=== PATIENT | male | born 1940 | race Caucasian/White ===

== ENCOUNTER 2017-03-14 13:51 | Emergency (ER) | payer MEDICARE, BC, SELFPAY ==
[2017-03-14 13:52] VITALS: BP 180/90; PULSE 86; RESP 20; TEMP 36.8; O2SAT 95; BMI 28.6
[2017-03-14 15:33] LABS: Bacteria 0 SEEN /hpf (None Seen); Mucous, Urine 0 SEEN /hpf (<or=2+); Red Blood Cells-Urine 0 SEEN /hpf (0-5)
[2017-03-14 15:37] LABS: Color, Urine Yellow (Yellow); Glucose, Dipstick Normal (Normal); Ketone-Dipstick Negative (Negative); Leukocyte Esterase-Dipstick Negative /ul (Negative); Nitrite-Dipstick Negative (Negative); Occult Blood-Urine 250 /ul (Negative); Protein-Dipstick 15 mg/dl (Negative); Urine Bilirubin Dipstick Negative (Negative); Urine Clarity Sl. Cloudy (Clear); Urine Urobilinogen Normal (Normal)
[2017-03-14 15:44] LABS: Amorphous Sediment 1+ URATE; Squamous Epithelial Cells - UA 0-5 SEEN /hpf (0-5); White Blood Cells 10-25 SEEN /hpf (0-5)
--- NOTE | 2017-03-14 16:09 | ED.VISSUMM ---
- ER Visit Summary Date of Service: 03/14/17 Chief Complaint: Urinary retention, hypertension History of Present Illness: The patient is a 76 M who has high blood pressure and some urinary retention. He saw his PCP today. He is having some suprapubic pain with this. He feels like he is not emptying out his bladder. He has a history of BPH in the past. He does not take Flomax currently. He denies dysuria or hematuria. No fevers. Physical Examination: Vital signs reviewed. HEENT exam unremarkable. Heart is regular rate and rhythm without murmurs. Lungs are clear to auscultation. Abdomen is soft with suprapubic tenderness. Extremities reveal no edema. Skin exam normal. Neurologic exam normal. Test Results: Urinalysis reveals 10-25 white blood cells Emergency Department Course and Treatment: A Godoy catheter was placed to be at 1.5 L of urine out. His blood pressure is 177/81. This is improved from 214/110 in the office. His PCP put him on a blood pressure medication and Flomax for home. I will add an antibiotic and he will go home with a Godoy catheter. He can follow up with his PCP or with Dr. Gomes Treatment Plan: [] Disposition: Discharge Impression: UTI, urinary retention, hypertension This note was generated with [employer] dictation software. It may contain incorrect words, spelling, and punctuation that were not noted in review of the chart prior to signing ED Disposition - Plan for ED Patient: Chief Complaint: Complaint Referrals: Paul Tabares III, MD [Primary Care Provider] -
[2017-03-14 16:12] VITALS: BP 187/95; PULSE 70; RESP 16; O2SAT 97
--- NOTE | 2017-03-14 16:12 | ED.DCSUM_ITS ---
- ER Visit Summary Date of Service: 03/14/17 Chief Complaint: Urinary retention, hypertension History of Present Illness: The patient is a 76 M who has high blood pressure and some urinary retention. He saw his PCP today. He is having some suprapubic pain with this. He feels like he is not emptying out his bladder. He has a history of BPH in the past. He does not take Flomax currently. He denies dysuria or hematuria. No fevers. Physical Examination: Vital signs reviewed. HEENT exam unremarkable. Heart is regular rate and rhythm without murmurs. Lungs are clear to auscultation. Abdomen is soft with suprapubic tenderness. Extremities reveal no edema. Skin exam normal. Neurologic exam normal. Test Results: Urinalysis reveals 10-25 white blood cells Emergency Department Course and Treatment: A Godoy catheter was placed to be at 1.5 L of urine out. His blood pressure is 177/81. This is improved from 214/ 110 in the office. His PCP put him on a blood pressure medication and Flomax for home. I will add an antibiotic and he will go home with a Godoy catheter. He can follow up with his PCP or with Dr. Gomes Treatment Plan: [] Disposition: Discharge Impression: UTI, urinary retention, hypertension This note was generated with [employer] dictation software. It may contain incorrect words, spelling, and punctuation that were not noted in review of the chart prior to signing ED Disposition - Plan for ED Patient: Chief Complaint: Complaint Referrals: Paul Tabares III, MD [Primary Care Provider] -
--- NOTE | 2017-03-14 16:12 | ED.DEP ---
ED Disposition - Plan for ED Patient: Disposition: Home or Assisted Living Chief Complaint: Complaint Instructions: ED UTI Cystitis Male Prescriptions: Cephalexin [Keflex] 500 mg PO BID #10 cap Referrals: Paul Tabares III, MD [Primary Care Provider] -
[2017-03-14 16:15] VITALS: BP 187/95; PULSE 70; RESP 16; O2SAT 97
== END 2017-03-14 16:29 | disposition home or self-care (01) ==
PROVIDERS: Emergency Provider Emergency Medicine; Family Provider Family Medicine; PCP Family Medicine
DX: N39.0 Urinary tract infection, site not specified (principal); R33.9 Retention of urine, unspecified; I10 Essential (primary) hypertension
CPT/HCPCS: 51702; 81001; 99283

== ENCOUNTER 2017-03-14 21:19 | Inpatient (IN) | payer MEDICARE, BC, SELFPAY ==
[2017-03-14 13:52] VITALS: BMI 28.6
[2017-03-14 16:15] VITALS: BP 187/95
[2017-03-14 21:22] VITALS: BP 177/110; PULSE 84; RESP 18; TEMP 37; O2SAT 97; BMI 28.1
[2017-03-14 22:52] LABS: Hematocrit 36.9 % (40-54); Hemoglobin 12.5 g/dl (13.0-16.5); Mean Corp Hgb Conc 33.9 g/gl (32-36); Mean Corpuscular Hgb 33.7 pg (27.0-32.0); Mean Corpuscular Volume 99.5 fL (80-94); Mean Platelet Vol. 10.7 fl (6.2-12.0); Platelet Count 183 K/mm3 (150-450); RBC Distribution Width CV 12.5 % (11.6-14.6); RBC Distribution Width SD 44.4 fl (35.1-43.9); Red Blood Count 3.71 M/mm3 (4.6-6.2); White Blood Count 7.6 K/mm3 (4.4-11.0)
[2017-03-14 22:57] LABS: Scan Indicated on CBC? Y/N NO
[2017-03-15] VITALS (8 sets, daily range): BP systolic 131–197; BP diastolic 74–104; PULSE 73–84; RESP 14–18; TEMP 36.7–37.1; O2SAT 97–98; BMI 26.9
--- NOTE | 2017-03-15 00:55 | ED.VISSUMM ---
- ER Visit Summary Date of Service: 03/15/17 Chief Complaint: Hematuria History of Present Illness: The patient is a 76 M has had a history of prostatic enlargement, recently diagnosed with a UTI and having trouble emptying his bladder so he was seen earlier today here in the ER after being sent by his doctor for catheterization, he was diagnosed with urinary retention and sent home with catheter to follow-up with urology. About half an hour after being catheterized leaving, he developed hematuria which developed in the clots, he then had some leaking around the catheter and intermittent discomfort in his suprapubic area. No back pain, nausea, vomiting, fevers. He started the antibiotic. Has never had hematuria before. Physical Examination: Well-appearing in no distress, vitals are unremarkable. He has minimal suprapubic discomfort with palpation, the rest of his abdomen is benign. No CVA tenderness. There is gross blood with clots present in the Godoy catheter, which is draining. Test Results: CBC is unremarkable. Emergency Department Course and Treatment: The bladder was irrigated and cleared. However, bleeding later recurred with clots. I recommend admission. Discussed with Dr. Gomes. Will admit to floor with continuous bladder irrigation, will place a new triple-lumen larger Lao Godoy catheter here in the ER. Treatment Plan: Admit MedSur for continuous bladder irrigation and urology evaluation in the morning Disposition: Admit Impression: Hematuria Urinary tract infection Urinary retention This note was generated with [employer] dictation software. It may contain incorrect words, spelling, and punctuation that were not noted in review of the chart prior to signing ED Disposition - Plan for ED Patient: Disposition: Acute Care Hospital [facility] Chief Complaint: Complaint Referrals: Paul Tabares III, MD [Primary Care Provider] -
--- NOTE | 2017-03-15 02:00 | ED.RN ---
[address] caldera placed with out any issues, sterile technique used. patient had clots and bright red blood return. cbi hung at at this time. patient tolerated well.
[2017-03-15] MEDS: Lidocaine Jelly 2% 20 ML Syringe (URO-JET) 10 APPLIC TOPICAL (02:05)
[2017-03-15 02:25] LABS: Anion Gap 12 (5-15); BUN 25 mg/dL (7-18); BUN/Creat Ratio 16.7 RATIO (10-20); Calcium,Total 8.6 mg/dL (8.5-10.1); Chloride 106 mmol/L (98-107); EST Glomerular Filtration Rate 49 mL/min (>60); Est Glom Filt Rate - Afr Amer 59 mL/min (>60); Glucose 100 mg/dL (74-106); Potassium 3.7 mmol/L (3.5-5.1); Sodium Level 141 mmol/L (136-145)
[2017-03-15] MEDS: 0.9% Normal Saline 1,000 ML 75 ML IV ×2 (03:13→18:23)
[2017-03-15] MEDS: Cefazolin 1 GM/50 ML BAG IV ×3 (03:24→21:20)
--- NOTE | 2017-03-15 07:54 | PCM.HP.STD ---
Problem List (1) Urinary retention due to benign prostatic hyperplasia Status: Acute Comment: had been having problems urinating and night time wetting. presented to ER in retention. History of Present Illness Date of Admission: 03/15/17 Chief Complaint: bph urinary retention. The patient is a 76 year old male with onset of urinary retention had been having leakage at night and incontinence, found to have retention and bleeding will do ct scan add on for TURP tomorrow. Past Medical History Allergies No Known Allergies Allergy (Verified 03/14/17 21:20) Home Medications: Ambulatory Orders Medication Instructions Recorded Cephalexin [Keflex] 500 mg PO BID #10 cap 03/14/17 Lisinopril [Prinivil] 10 mg PO DAILY 03/14/17 Tamsulosin HCl [Flomax] 0.4 mg PO DAILY 03/14/17 Surgical History: no surgical history Psychiatric History: No pertinent psych hx Lives: Alone Smoking Status: Never smoker Tobacco Use: Non-smoker Alcohol: None Drugs: None Review of Systems Constitutional: Denies: Chills, Fever, Weight Change HEENT: Denies: Head Aches, Sinus Congestion, Sinus Drainage Cardiovascular: Denies: Chest Pain, Palpitations Respiratory: Denies: Cough, Shortness of breath at rest, Sputum production Gastrointestinal: Denies: Abdominal Pain, Nausea, Vomiting Genitourinary: Denies: Dysuria Musculoskeletal: Denies: Joint Pain, Joint Tenderness Skin: Denies: Rash, Wounds Neurological: Denies: Numbness, Tingling, Focal weakness Psychiatric: Denies: Anxiety, Depression, Homicidal Ideations, Suicidal Ideations Hematologic/ Lymphatic: Denies: Easy Bruising, Easy Bleeding VTE Information - Inpt Only VTE Present on Admission: No VTE Mechan Device Prophylaxis: SCD's Patient Problems: Active and Suspected Problems Urinary retention due to benign prostatic hyperplasia (Acute) had been having problems urinating and night time wetting. presented to ER in retention. - Physical Exam General: Alert, Oriented x3, Cooperative HEENT: Atraumatic, PERRLA, EOMI, Normocephalic Neck: Supple, No JVD, Negative Carotid Bruits Lungs: Clear to auscultation, Normal air movement Cardiovascular: Regular rate, No murmurs Abdomen: Bowel Sounds Present, Soft, Non Tender Extremities: No edema, Capillary Refill Less than 3 Seconds Skin: No rashes, No breakdown Musculoskeletal: No Tenderness to Palpation of Joints or Extremities Neurological: Cranial nerves II-XII grossly intact Psych/Mental Status: Normal Affect, Appropriate Comment: prostate, enlarged 65gm,smooth Vital Signs Temp Pulse Resp BP Pulse Ox 98.5 F 81 16 145/80 H 98 03/15/17 07:45 03/15/17 07:45 03/15/17 07:45 03/15/17 07:45 03/15/17 07:45 Oxygen Delivery Method Room Air Weight: 80.377 kg Body Mass Index (BMI) 26.9 Intake and Output for Last 24 Hours 03/13/17 03/14/17 03/15/17 23:59 23:59 23:59 Output Total 900 / 900 Balance -900 / -900 Assessment/Plan Active and Suspected Problems Urinary retention due to benign prostatic hyperplasia (Acute) had been having problems urinating and night time wetting. presented to ER in retention. 76 yo male with urinary retention admitted for bleeding will do ct scan, plan for a TURP in the morning. npo at midnight.
--- NOTE | 2017-03-15 07:57 | CT_ITS ---
STUDY: CT ABDOMEN AND PELVIS WITHOUT CONTRAST REASON FOR EXAM: Male, 76 years old. Urinary retention. History of BPH. RADIATION DOSAGE (If Supplied By Facility): CTDIvol = ( 7.81 ) mGy, DLP = ( 374.40 ) mGycm TECHNIQUE: Transaxial images were obtained from the dome of the diaphragm to the symphysis pubis without oral contrast, and without intravenous contrast. Sagittal and coronal images were reconstructed. Individualized dose optimization techniques were used for this CT. COMPARISON: None. FINDINGS: Minimal degree of increased markings at the lung bases suggestive of linear scarring and/or atelectasis. Small left pleural effusion. Coronary artery calcifications. Normal liver. I suspect small gallstones along the dependent portion of the gallbladder lumen. Normal spleen. Normal pancreas. Normal bilateral adrenal glands. Moderate to severe degree of right-sided hydronephrosis and there is moderate hydroureter down to the insertion into the bladder. Moderate left hydronephrosis and left hydroureter. There is a small hiatal hernia. Normal small intestine. There are multiple colonic diverticula consistent with diverticulosis. The appendix is visualized and appears normal. There is diffuse atherosclerotic calcification of the abdominal aorta, without a demonstrated aneurysm. Normal inferior vena cava. Normal retroperitoneum. There is diffuse circumferential wall thickening of the urinary bladder. A Godoy catheter is seen within the bladder. The bladder is empty at the time of the examination. There is enlargement of the prostate gland. It measures 5.1 cm x 5.3 cm. This causes indentation at the bladder base. There is a small umbilical hernia containing fat. Disc space narrowing with subchondral sclerosis at the L4-L5 level. CT/Abdomen/Pelvis without Cont IMPRESSION: Bilateral hydronephrosis and hydroureter worse on the right side. Diffusely thickened wall of the urinary bladder. Prostatic hypertrophy. Small left pleural effusion with linear atelectasis and/or scarring at the lung bases. Electronically Signed: Vaibhav Llamas MD at 9:02 EST Tel [phone], Service support ,
[2017-03-15] MEDS: Tamsulosin HCl 0.4 MG Capsule PO (11:27)
[2017-03-15] MEDS: 0.9% NaCl Peripheral Flush Adult/Peds IV (11:27)
[2017-03-15] MEDS: Lisinopril 10 MG Tablet PO (11:27)
[2017-03-15] MEDS: Acetaminophen 325 MG Tablet PO (21:19)
[2017-03-16] VITALS (18 sets, daily range): BP systolic 113–170; BP diastolic 60–140; PULSE 67–81; RESP 16–18; TEMP 36–37.4; O2SAT 92–100; BMI 26.9
--- NOTE | 2017-03-16 04:00 | EKG12_ITS ---
Test Reason : PREOP Blood Pressure : / mmHG Vent. Rate : 075 BPM Atrial Rate : 075 BPM P-R Int : 152 ms QRS Dur : 128 ms QT Int : 444 ms P-R-T Axes : 051 -36 -07 degrees QTc Int : 495 ms Normal sinus rhythm Left axis deviation Right bundle branch block Abnormal ECG Confirmed by CEDRIC PALENCIA, HUNTER ([id number]), electronic news gathering editor JAXON CHOUDHURY ([id number]) on 03/19/2017 2:20:38 PM Referred By: GABRIELA Confirmed By:HUNTER STEELE MD
--- NOTE | 2017-03-16 05:33 | NURSING ---
0600 CEFAZOLIN SENT TO OR W/PT. LATESHA FROM SURGERY GIVEN REPORT. PT OFF FLOOR AT 0520.
[2017-03-16] MEDS: Cefazolin 1 GM/50 ML BAG IV ×3 (07:24→21:51)
--- NOTE | 2017-03-16 07:30 | PROS_PTH ---
PATIENT: KYAW CALHOUN LOC: MS3 U#:[id number] AGE/SX: 76/M ROOM: [facility] [place]03/16/[address]: Dr. Diomedes Gomes MD : [id number] BED: 1 DIS: 03/18/2017 SPEC #: [id number] RECD: 03/16/17 10:11 STATUS: HÉCTOR ACOSTA #: [id number] MIGUELINA: 03/16/17 07:[address]: Diomedes Gomes DEPT: SURGICAL PATHOLOGY RECD BY: Steven Persaud ENTERED: 03/16/17 12:09 SP TYPE: TURP OTHR DR: Dr. Paul Tabares III, MD Tissues: Prostate, NOS Procedures: Surgery Specimen Level IV HEADER OPERATION: Cysto, TUR, prostate, Olympus PRE-OP DIAGNOSIS: Urinary retention; benign prostatic hypertrophy TISSUE SUBMITTED: Prostate tissue MICROSCOPIC DIAGNOSIS Prostate, transurethral resection: Benign nodular hyperplasia, glandular and stromal types. Chronic inflammation with focal acute inflammation. Strips of benign urothelium with mild chronic inflammation. AM:gallito 03/19/17 MICROSCOPIC DESCRIPTION Slides are reviewed. GROSS DESCRIPTION Received is one container labeled with the patient's name and designated prostate tissue. The specimen consists of multiple irregular fragments of pink-garcia, rubbery, soft tissue that in aggregate weigh 34.1 gm and measure in aggregate 8 x 8 x 1.2 cm. Noc Engineer portions are submitted in 12 cassettes. / AM:gallito 03/16/17 TC:2 CPT: 28088
--- NOTE | 2017-03-16 08:58 | PCM.OPRPT ---
Problem List (1) Urinary retention due to benign prostatic hyperplasia Status: Acute Comment: Urinary retention from BPH and bilateral hydronephrosis Report of Operation Date of Procedure: 03/16/17 Pre-Operative Diagnosis: BPH, urinary retention and bilateral hydronephrosis Post-Operative Diagnosis: Same Surgery/Procedure Performed:: Transurethral resection of the prostate Description of Surgical Findings:: 76-year-old male taken back to the operating room at the smooth induction of general anesthesia he is placed in dorsal lithotomy position the current 24 Polish catheter was removed from the bladder this is placed in the emergency room by the ER staff. I then prepped and draped the patient usual sterile fashion went into the bladder with a 26 Polish continuous flow resectoscope along the length of the ureter there is a small tear in the bulbar urethra posteriorly from the placement of Godoy catheter this is a little bit of bleeding otherwise just a small tear should help heal on its own I then went up the prostate had a very large obstructive prostate very large lateral lobes growing into the prostate no significant median lobe I then resected the median lobe and resected at the 6:00 back to the verumontanum I then resected the right lobe of the prostate all the way back to the verumontanum I then resected the left lobe of the prostate out all the way back to the verumontanum, I then very carefully resected the apical tissue at the verumontanum making sure I did not injure the sphincter we elect out all the chips out of the bladder bladder was heavily trabeculated left and right ureteral orifice were uninvolved and uninjured and surgery and were identified. Once all the prostate chips were removed there was a handed off as a specimen I did then use the button to smooth out the resection and obtained good hemostasis. I pulled back beyond the sphincter and the sphincter coapted together was nice intact look like the sphincter was working properly looked inside from the bladder into the bladder had a wide open channel. We did a Valsalva test at the end had a nice wide open stream. Patient anesthetic was reversed place a 22 Polish Godoy catheter into the bladder and put on continuous bladder irrigation with a 30 cc balloon of water. Type of Anesthesia:: General Drains: 22fr 3 way - Admit VTE Documentation VTE Present on Admission: No VTE Mechan Device Prophylaxis: SCD's VTE Pharm Prophylaxis ordered?: No Reason prophylaxis not ordered:: Treatment Not Indicated
[2017-03-16] MEDS: 0.9% Normal Saline 1,000 ML 75 ML IV ×2 (11:51→21:51)
[2017-03-16] MEDS: Pantoprazole Sodium 40 MG Tablet PO (12:41)
[2017-03-16] MEDS: Lisinopril 10 MG Tablet PO (12:41)
[2017-03-16] MEDS: Docusate Sodium 100 MG Capsule PO ×2 (12:41→21:50)
[2017-03-16] MEDS: Tamsulosin HCl 0.4 MG Capsule PO (12:41)
[2017-03-16] MEDS: Acetaminophen 325 MG Tablet PO (21:50)
[2017-03-17 03:45] VITALS: BP 134/74; PULSE 83; RESP 15; TEMP 37.4; O2SAT 96
[2017-03-17] MEDS: Cefazolin 1 GM/50 ML BAG IV ×3 (05:11→21:01)
[2017-03-17 06:36] LABS: Hematocrit 26.1 % (40-54); Hemoglobin 8.7 g/dl (13.0-16.5); Mean Corp Hgb Conc 33.3 g/gl (32-36); Mean Corpuscular Hgb 33.7 pg (27.0-32.0); Mean Corpuscular Volume 101.2 fL (80-94); Mean Platelet Vol. 10.8 fl (6.2-12.0); Platelet Count 125 K/mm3 (150-450); RBC Distribution Width CV 12.3 % (11.6-14.6); RBC Distribution Width SD 43.4 fl (35.1-43.9); Red Blood Count 2.58 M/mm3 (4.6-6.2); Scan Indicated on CBC? Y/N NO; White Blood Count 8.6 K/mm3 (4.4-11.0)
[2017-03-17 07:01] LABS: Anion Gap 8 (5-15); BUN 18 mg/dL (7-18); BUN/Creat Ratio 15.9 RATIO (10-20); Calcium,Total 7.4 mg/dL (8.5-10.1); Chloride 109 mmol/L (98-107); Creatinine, Serum 1.13 mg/dL (0.70-1.30); EST Glomerular Filtration Rate 67 mL/min (>60); Est Glom Filt Rate - Afr Amer 82 mL/min (>60); Estimated Creatinine Clearance 55.49 ml/min; Glucose 100 mg/dL (74-106); Potassium 3.6 mmol/L (3.5-5.1); Sodium Level 141 mmol/L (136-145)
[2017-03-17 07:53] VITALS: BP 145/66; PULSE 87; RESP 18; TEMP 36.9; O2SAT 97
[2017-03-17] MEDS: Docusate Sodium 100 MG Capsule PO ×2 (08:04→21:01)
[2017-03-17] MEDS: Tamsulosin HCl 0.4 MG Capsule PO (08:04)
[2017-03-17] MEDS: Pantoprazole Sodium 40 MG Tablet PO (08:04)
[2017-03-17] MEDS: Lisinopril 10 MG Tablet PO (08:04)
--- NOTE | 2017-03-17 08:07 | PCM.PROGNOTE ---
Patient Problems: Active and Suspected Problems Urinary retention due to benign prostatic hyperplasia (Acute) Urinary retention from BPH and bilateral hydronephrosis Subjective: s/p turp, urine light pink off irrigation this morning. - Physical Exam General: Alert, Oriented x3, Cooperative HEENT: Atraumatic, PERRLA, EOMI, Normocephalic Neck: Supple, No JVD, Negative Carotid Bruits Lungs: Clear to auscultation, Normal air movement Cardiovascular: Regular rate, No murmurs Abdomen: Bowel Sounds Present, Soft, Non Tender Extremities: No edema, Capillary Refill Less than 3 Seconds Skin: No rashes, No breakdown Musculoskeletal: No Tenderness to Palpation of Joints or Extremities Neurological: Cranial nerves II-XII grossly intact Psych/Mental Status: Normal Affect, Appropriate Vital Signs Temp Pulse Resp BP Pulse Ox 98.5 F 87 18 145/66 H 97 03/17/17 07:53 03/17/17 07:53 03/17/17 07:53 03/17/17 07:53 03/17/17 07:53 Oxygen Delivery Method Room Air Intake and Output for Last 24 Hours 03/15/17 03/16/17 03/17/17 23:59 23:59 23:59 Intake Total 428 / 5003 1445 / 1445 Output Total 1925 / 7325 4700 / 4700 Balance -1497 / -2322 -3255 / -3255 Laboratory Tests Past 24 Hrs 03/17/17 03/17/17 06:09 06:09 WBC 8.6 RBC 2.58 L Hgb 8.7 L Hct 26.1 L MCV 101.2 H MCH 33.7 H MCHC 33.3 RDW 12.3 RDW Differential 43.4 Plt Count 125 L MPV 10.8 Sodium 141 Potassium 3.6 Chloride 109 H Carbon Dioxide 24.0 Anion Gap 8 BUN 18 Creatinine 1.13 Estim Creat Clear Calc 55.49 Est GFR (MDRD) Af Amer 82 Est GFR (MDRD) Non-Af 67 BUN/Creatinine Ratio 15.9 Glucose 100 Calcium 7.4 L Assessment/Plan Active and Suspected Problems Urinary retention due to benign prostatic hyperplasia (Acute) Urinary retention from BPH and bilateral hydronephrosis continue IVF out of bed , ambulate stop cbi and watch too early to d/c caldera v large prostate still some blood, HCT down some but no transfusion needed BP a little high on lisinopril but ok for now.
[2017-03-17] MEDS: 0.9% Normal Saline 1,000 ML 75 ML IV (14:05)
[2017-03-17 14:07] VITALS: BP 105/86; PULSE 88; RESP 18; TEMP 37; O2SAT 98
[2017-03-17 20:40] VITALS: BP 159/89; PULSE 88; RESP 18; TEMP 37.2; O2SAT 98
[2017-03-17] MEDS: oxyCODONE 5 MG Tablet PO (20:48)
[2017-03-17 20:50] VITALS: PULSE 88; RESP 18; O2SAT 98
[2017-03-18 03:00] VITALS: BP 162/81; PULSE 88; RESP 18; TEMP 37.1; O2SAT 98
[2017-03-18 03:16] VITALS: BP 162/81; PULSE 88
[2017-03-18] MEDS: Cefazolin 1 GM/50 ML BAG IV (05:22)
[2017-03-18] MEDS: 0.9% Normal Saline 1,000 ML 75 ML IV (05:22)
[2017-03-18 07:24] VITALS: PULSE 90; RESP 20; TEMP 36.6
--- NOTE | 2017-03-18 07:49 | PCM.PROGNOTE ---
Patient Problems: Active and Suspected Problems Urinary retention due to benign prostatic hyperplasia (Acute) Urinary retention from BPH and bilateral hydronephrosis Subjective: s/p turp caldera removed today bp high will increase lisinopril to 20mg daily urine wine color with occ clots caldera removed - Physical Exam General: Alert, Oriented x3, Cooperative HEENT: Atraumatic, PERRLA, EOMI, Normocephalic Neck: Supple, No JVD, Negative Carotid Bruits Lungs: Clear to auscultation, Normal air movement Cardiovascular: Regular rate, No murmurs Abdomen: Bowel Sounds Present, Soft, Non Tender Extremities: No edema, Capillary Refill Less than 3 Seconds Skin: No rashes, No breakdown Musculoskeletal: No Tenderness to Palpation of Joints or Extremities Neurological: Cranial nerves II-XII grossly intact Psych/Mental Status: Normal Affect, Appropriate Vital Signs Temp Pulse Resp BP Pulse Ox 97.8 F 90 20 H 162/81 H 98 03/18/17 07:24 03/18/17 07:24 03/18/17 07:24 03/18/17 03:16 03/18/17 03:00 Oxygen Delivery Method Room Air Intake and Output for Last 24 Hours 03/16/17 03/17/17 03/18/17 23:59 23:59 23:59 Intake Total 428 / 5003 2837 / 2837 2099 Output Total 1925 / 7325 3550 / 3550 Balance -1497 / -2322 -713 / -713 2099 Assessment/Plan Active and Suspected Problems Urinary retention due to benign prostatic hyperplasia (Acute) Urinary retention from BPH and bilateral hydronephrosis caldera removed heplock oral cipro ambulate will check later today, if ok then home.
[2017-03-18] MEDS: Lisinopril 20 MG Tablet PO (07:56)
[2017-03-18] MEDS: Tamsulosin HCl 0.4 MG Capsule PO (07:58)
[2017-03-18] MEDS: Docusate Sodium 100 MG Capsule PO (07:58)
[2017-03-18] MEDS: Pantoprazole Sodium 40 MG Tablet PO (07:59)
[2017-03-18] MEDS: Ciprofloxacin 500 MG Tablet PO (09:41)
--- NOTE | 2017-03-18 14:32 | PCM.DC.URO ---
Discharge Diet: Light diet - advance as tolerated Discharge Activity: May Not Shower May shower in (days): 1 Call your doctor if your incision/area has: Sudden Increased Bleeding Call your doctor if you observe: Fever of 101 or Higher, Uncontrolled pain Suture Line Care: Avoid Pulling/Pushing, Avoid Pinching/Bending Instructions: Transurethral Resection of the Prostate (TURP): Home Recovery Allergies/Adverse Reactions: Allergies No Known Allergies Allergy (Verified 03/14/17 21:20) Medications to take at Discharge Cephalexin [Keflex] 500 mg PO BID #10 cap 03/14/17 Lisinopril [Prinivil] 10 mg PO DAILY 03/14/17 Tamsulosin HCl [Flomax] 0.4 mg PO DAILY 03/14/17 Ciprofloxacin [Cipro] 500 mg PO BID #14 tab 03/18/17 The following prescriptions were given: Ciprofloxacin [Cipro] 500 mg PO BID #14 tab Primary Care Physician: Paul Tabares III, MD [Primary Care Provider] - Please Follow Up With: Diomedes Gomes MD When: please call to make an appointment.
--- NOTE | 2017-03-18 14:33 | PCM.DC.SUM ---
Discharge Date and Diagnosis - Problem List Patient Problems: Active and Suspected Problems Urinary retention due to benign prostatic hyperplasia (Acute) Urinary retention from BPH and bilateral hydronephrosis Date of Admission: 03/15/17 Date of Discharge: 03/18/17 - Primary Discharge Diagnosis Active and Suspected Problems Urinary retention due to benign prostatic hyperplasia (Acute) Urinary retention from BPH and bilateral hydronephrosis Hospital Course and Treatment none Operations: TURP Procedures: None Summary of Care Provided: The patient is a 76 year old male admitted for urinary retention and b/l hydronephrosis s/p turp, bloody afterwards and hct down to 8.7 but then stabilized home after caldera removed, void ok, no clots and ok control. Blood pressure labile while in hospital recently stared on lisinopril, recommend stay on same dose and follow up with pcp for high blood pressure, follow up with urology for bph and post op check. Discharge Diet: Light diet - advance as tolerated Discharge Activity: May Not Shower May shower in (days): 1 Call your doctor if your incision/area has: Sudden Increased Bleeding Call your doctor if you observe: Fever of 101 or Higher, Uncontrolled pain Suture Line Care: Avoid Pulling/Pushing, Avoid Pinching/Bending Home Medications: Medications to take at Discharge Cephalexin [Keflex] 500 mg PO BID #10 cap 03/14/17 Lisinopril [Prinivil] 10 mg PO DAILY 03/14/17 Tamsulosin HCl [Flomax] 0.4 mg PO DAILY 03/14/17 Ciprofloxacin [Cipro] 500 mg PO BID #14 tab 03/18/17 Following Prescrptions Were Given to Patient: Ciprofloxacin [Cipro] 500 mg PO BID #14 tab Primary Care Physician: Paul Tabares III, MD [Primary Care Provider] - Please Follow Up With: Diomedes Gomes MD When: please call to make an appointment. Patient Instructions: Transurethral Resection of the Prostate (TURP): Home Recovery Meaningful Use Info Meaningful Use Diagnoses (Choose all that apply): None applicable
[2017-03-18 14:36] VITALS: BP 135/46; PULSE 96; RESP 18; TEMP 37; O2SAT 95
== END 2017-03-18 14:51 | disposition home or self-care (01) | DRG 713 ==
LOC: ED 03-15 00:55 → MS2 03-15 02:07 → MS3 03-17 14:44
PROVIDERS: Admitting Provider Urology; Emergency Provider Emergency Medicine; Family Provider Family Medicine; PCP Family Medicine; Visit Provider Urology
PROC: 0VB08ZZ Excision of Prostate, Via Natural or Artificial Opening Endoscopic (ICD-10-PCS; principal; 2017-03-16 07:20)
DX: N40.1 Benign prostatic hyperplasia with lower urinary tract symptoms (principal); N13.30 Unspecified hydronephrosis; N99.71 Accidental puncture and laceration of a genitourinary system organ or structure during a genitourinary system procedure; R71.0 Precipitous drop in hematocrit; N39.0 Urinary tract infection, site not specified; R31.9 Hematuria, unspecified; R33.8 Other retention of urine; Z79.899 Other long term (current) drug therapy; Z79.2 Long term (current) use of antibiotics; I10 Essential (primary) hypertension; K44.9 Diaphragmatic hernia without obstruction or gangrene; Y84.6 Urinary catheterization as the cause of abnormal reaction of the patient, or of later complication, without mention of misadventure at the time of the procedure; Y73.1 Therapeutic (nonsurgical) and rehabilitative gastroenterology and urology devices associated with adverse incidents; Y92.230 Patient room in hospital as the place of occurrence of the external cause
CPT/HCPCS: 36415; 51702; 74176; 80048; 81001; 85027; 88305; 93005; 99283; 99285; J7030; J7120; A4216; J2405

== ENCOUNTER → 2017-07-03 14:01 | Outpatient (CLI) | payer MEDICARE, BC, SELFPAY ==
[2017-07-03 15:34] LABS: Anion Gap 5 (5-15); BUN 25 mg/dL (7-18); BUN/Creat Ratio 26.7 RATIO (10-20); Calcium,Total 8.9 mg/dL (8.5-10.1); Chloride 107 mmol/L (98-107); Creatinine, Serum 0.94 mg/dL (0.70-1.30); EST Glomerular Filtration Rate 84 mL/min (>60); Est Glom Filt Rate - Afr Amer 101 mL/min (>60); Glucose 112 mg/dL (74-106); Sodium Level 141 mmol/L (136-145)
== END ==
PROVIDERS: Family Provider Family Medicine; PCP Family Medicine; Visit Provider Urology
DX: Z12.5 Encounter for screening for malignant neoplasm of prostate (principal)
CPT/HCPCS: 36415; 80048; 84153; G0103

== ENCOUNTER → 2018-02-21 13:31 | Outpatient (CLI) | payer MEDICARE, BC, SELFPAY ==
[2017-03-16 05:38] VITALS: BMI 26.9
[2018-02-21 14:58] LABS: Anion Gap 7 (5-15); BUN 29 mg/dL (7-18); BUN/Creat Ratio 29.2 RATIO (10-20); Calcium,Total 8.9 mg/dL (8.5-10.1); Chloride 107 mmol/L (98-107); Creatinine, Serum 0.99 mg/dL (0.70-1.30); EST Glomerular Filtration Rate 78 mL/min (>60); Est Glom Filt Rate - Afr Amer 94 mL/min (>60); Glucose 104 mg/dL (74-106); Potassium 4.1 mmol/L (3.5-5.1); Sodium Level 142 mmol/L (136-145)
--- OUTSIDE RECORDS SUMMARY | 2018-04-28 08:05 | XMS RPT_ITS ---
:1940 Author Organization OH[facility] Care Team Providers Name Role Phone PAUL TABARES III Attending Unavailable CEBUL III, PAUL A Referring Unavailable CEBUL IIIPAUL A Referring Unavailable Cebul III, Paul Attending Unavailable Cebul III, Paul Referring Unavailable Cebul III, Paul Primary Care Unavailable Cebul III, Paul Primary Care Unavailable Kunal Harper Attending Unavailable Cebul III, Paul Primary Care Unavailable Diomedes Gomes Admitting Unavailable GabrielaDiomedes Attending Unavailable [place] Attending Unavailable Diomedes Gomes Referring Unavailable Diomedes Gomes Attending Unavailable Diomedes Gomes Referring Unavailable Cebul III, Paul Primary Care Unavailable PROBLEMS PROBLEMS DATE TYPE CONDITION / CODE ATTENDING STATUS SOURCE 03/21/2017 Active Unknown / UNK(Unknown) NA Active [facility] Main [place] Repository 04/20/2017 Unknown R94.31 - Abnormal [place], Active [facility] electrocardiogram [facility] [ECG] [EKG] / Hospital R94.31(ICD-10) Repository 04/02/2017 Unknown R33.9 - Retention of Lowe, Kunal Active [facility] urine, unspecified / Community R33.9(ICD-10) Hospital Repository 03/14/2017 Active Benign prostatic NA Active [facility] hyperplasia with lower Clinic Main urinary tract symptoms [place] / N40.1(ICD-10) Repository 03/14/2017 Active 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 / Clinic Main N13.8(ICD-10) [place] Repository 03/14/2017 Active Essential (primary) NA Active [facility] hypertension / Clinic Main I10(ICD-10) [place] Repository 03/14/2017 Active Hyperlipidemia, NA Active [facility] unspecified / Clinic Main E78.5(ICD-10) [place] Repository 03/14/2017 Active Elevated prostate NA Active [facility] specific antigen (PSA) Clinic Main / R97.20(ICD-10) [place] Repository PROCEDURES PROCEDURES No Procedure Records FoundRESULTS RESULTS BASIC METABOLIC Collected: 02/21/2018 Status: F Source: [place] PROFILE (BMP) 1:36 PM [facility] REPOSITORY TYPE CODE TESTS RESULT OUT OF RANGE REFERENCE UNITS LAB L501.0100 74-106 mg/dL Normal GLU 104 Result Comment: Fasting Glucose result from 100 to 125 mg/dL suggests IMPAIRED HOMEOSTASIS per A.D.A. criteria. Please note revised GLUCOSE reference range effective 2017. LAB L501.1000 7-18 mg/dL High BUN 29 LAB L501.1100 0.70-1.30 mg/dL Normal CREAT,SERUM 0.99 Result Comment: The validity of the calculated GFR AND GFRAA in patients over 70 years has not been determined. Clinical correlation is essential. LAB L501.1110 >60 mL/min Normal EST GFR 78 Result Comment: Non- GFR Calc LAB L501.1115 >60 mL/min Normal EST GFR - AA 94 Result Comment: GFR Calc LAB L501.1300 10-20 RATIO High BUN/CRE 29.2 LAB L501.2200 8.5-10.1 mg/dL CA Normal 8.9 LAB L501.5300 136-145 mmol/L NA Normal 142 LAB L501.5600 3.5-5.1 mmol/L K Normal 4.1 LAB L501.5900 98-107 mmol/L CL Normal 107 LAB L501.6100 21.0-32.0 mmol/L Normal CO2 28.0 LAB L501.6200 5-15 Normal GAP 7 Performed By: #### L500.2500 #### [facility] [address] [place], [address] BASIC METABOLIC Collected: 07/03/2017 Status: F Source: [place] PROFILE (BMP) 2:07 PM [facility] REPOSITORY TYPE CODE TESTS RESULT OUT OF RANGE REFERENCE UNITS LAB L501.0100 74-106 mg/dL High GLU 112 Result Comment: Fasting Glucose result from 100 to 125 mg/dL suggests IMPAIRED HOMEOSTASIS per A.D.A. criteria. Please note revised GLUCOSE reference range effective 2017. LAB L501.1000 7-18 mg/dL High BUN 25 LAB L501.1100 0.70-1.30 mg/dL Normal CREAT,SERUM 0.94 Result Comment: The validity of the calculated GFR AND GFRAA in patients over 70 years has not been determined. Clinical correlation is essential. LAB L501.1110 >60 mL/min Normal EST GFR 84 Result Comment: Non- GFR Calc LAB L501.1115 >60 mL/min Normal EST GFR - AA 101 Result Comment: GFR Calc LAB L501.1300 10-20 RATIO High BUN/CRE 26.7 LAB L501.2200 8.5-10.1 mg/dL CA Normal 8.9 LAB L501.5300 136-145 mmol/L NA Normal 141 LAB L501.5600 3.5-5.1 mmol/L K Normal 4.0 LAB L501.5900 98-107 mmol/L CL Normal 107 LAB L501.6100 21.0-32.0 mmol/L Normal CO2 29.0 LAB L501.6200 5-15 Normal GAP 5 Performed By: #### L500.2500, L501.9910 #### [facility] [address] [place], [address] PSA,TOTAL - ANNUAL Collected: 07/03/2017 Status: F Source: [place] SCREEN 2:07 PM [facility] REPOSITORY TYPE CODE TESTS RESULT OUT OF RANGE REFERENCE UNITS LAB L501.9910 0.00-4.00 ng/mL Normal PSA,TOT 3.40 SCREEN Result Comment: This test was performed using the TPSA assay method for the Spime chemistry system. Values obtained with different assay methods cannot be used interchangably. When changing PSA assays in the course of monitoring a patient, additional sequential testing should be carried out to confirm baseline values. Performed By: #### L500.2500, L501.9910 #### [facility] [address] [place], [address] PROGRESS Observed: 03/21/2017 Status: COMPLETED Source: [place] 11:20 AM [facility] REPOSITORY HNO ID: [id number] Author: Korina Garza LPN Service: (none) Author Type: (none) Type: Progress Notes Filed: 03/21/2017 11:26 AM Note Text: Manual Readin/76 Pulse: 78 Reason for blood pressure check - Last BP elevated and Medication adjustment Patient is: Taking medication as prescribed Yes Took medication today Yes If no, date medication last taken N/A Experiencing side effects No BP was elevated at last appt 03/14/17. Was placed on Lisinopril 10mg daily. Tolerating medication well. Did have recent prostate surgery on 03/16/17. Denies any chest pain, shortness of breath, or headaches. Has had some dizziness but unsure if being caused by new BP medication or medications given by surgeon (Flomax and Cipro). Daily caffeine use. No personal history of tobacco use; no current exposure. Alert and oriented. Pt has been identified by name and birthdate: Yes Allergies reviewed: Yes Latex allergy: no. Medication - prescribed and OTC reviewed and updated: Yes Do you need any prescription refills prior to your next visit: No Health Maintenance: Reviewed and not up to date and provider notified Patient advised to continue with current medications and would be contacted with any further instructions after review by PCP. Korina [place] [employer] 12 LEAD ELECTROCARDIOGRAM Observed: 03/19/2017 Status: F Source: [place] 2:20 PM [facility] Cardiovascular Services [address] [place] [address] 12 Lead EKG 03/16/17 0602 MR#: [id number] Acct: [id number] Name: KYAW CALHOUN Rep #: [id number] : 1940 76 From: West Steele MD Attending Dr: Gabriela PALENCIA,Diomedes Venegas Status: DIS IN Ordering Dr: Effie Smith MD Date: 03/16/17 Location: [facility] Sex: M C Admitted: 03/16/17 Test Reason : PREOP Blood Pressure : / mmHG Vent. Rate : 075 BPM Atrial Rate : 075 BPM P-R Int : 152 ms QRS Dur : 128 ms QT Int : 444 ms P-R-T Axes : 051 -36 -07 degrees QTc Int : 495 ms Normal sinus rhythm Left axis deviation Right bundle branch block Abnormal ECG Confirmed by CEDRIC PALENCIA, WEST ([id number]), editor book JAXON CHOUDHURY ([id number]) on 03/19/2017 2:20:38 PM Referred By: GABRIELA Confirmed By:WEST STEELE MD 03/19/17 142 Date West Steele MD CC: Effie Smith MD; Paul Tabares III, MD Signed DISCHARGE SUMMARY Observed: 03/18/2017 Status: F Source: [place] 2:36 PM [facility] Medical Records Department [address] [place] [address] Discharge Summary 03/18/17 1433 MR#: [id number] Acct: [id number] Name: KYAW CALHOUN Rep #: [id number] : 1940 76 From: Diomedes Gomes MD PCP: Paul Tabares III, MD Status: ADM IN Y Location: [facility] [id number] Discharge Date and Diagnosis - Problem List Patient Problems: Active and Suspected Problems Urinary retention due to benign prostatic hyperplasia (Acute) Urinary retention from BPH and bilateral hydronephrosis Date of Admission: 03/15/17 Date of Discharge: 03/18/17 - Primary Discharge Diagnosis Active and Suspected Problems Urinary retention due to benign prostatic hyperplasia (Acute) Urinary retention from BPH and bilateral hydronephrosis Hospital Course and Treatment none Operations: TURP Procedures: None Summary of Care Provided: The patient is a 76 year old male admitted for urinary retention and b/l hydronephrosis s/p turp, bloody afterwards and hct down to 8.7 but then stabilized home after caldera removed, void ok, no clots and ok control. Blood pressure labile while in hospital recently stared on lisinopril, recommend stay on same dose and follow up with pcp for high blood pressure, follow up with urology for bph and post op check. Discharge Diet: Light diet - advance as tolerated Discharge Activity: May Not Shower May shower in (days): 1 Call your doctor if your incision/area has: Sudden Increased Bleeding Call your doctor if you observe: Fever of 101 or Higher, Uncontrolled pain Suture Line Care: Avoid Pulling/Pushing, Avoid Pinching/Bending Home Medications: Medications to take at Discharge Cephalexin [Keflex] 500 mg PO BID #10 cap 03/14/17 Lisinopril [Prinivil] 10 mg PO DAILY 03/14/17 Tamsulosin HCl [Flomax] 0.4 mg PO DAILY 03/14/17 Ciprofloxacin [Cipro] 500 mg PO BID #14 tab 03/18/17 Following Prescrptions Were Given to Patient: Ciprofloxacin [Cipro] 500 mg PO BID #14 tab Primary Care Physician: Paul Tabares III, MD [Primary Care Provider] - Please Follow Up With: Diomedes Gomes MD When: please call to make an appointment. Patient Instructions: Transurethral Resection of the Prostate (TURP): Home Recovery Meaningful Use Info Meaningful Use Diagnoses (Choose all that apply): None applicable 03/18/17 1436 <Electronically signed by Diomedes Gomes MD> Date Diomedes Gomes MD Cosigner Signature (if applicable): Date CC: Paul Tabares III, MD; Diomedes Gomes MD Signed DISCHARGE INSTRUCTION Observed: 03/18/2017 Status: F Source: [place] 2:33 PM [facility] REPOSITORY [facility] Medical Records Department [address] [place] [address] Instructions for Home/Discharge Instructions 03/18/17 1432 MR#: [id number] Acct: [id number] Name: KYAW CALHOUN Rep #: [id number] : 1940 76 From: Diomedes Gomes MD PCP: Paul Tabares III, MD Status: ADM IN Discharge Diet: Light diet - advance as tolerated Discharge Activity: May Not Shower May shower in (days): 1 Call your doctor if your incision/area has: Sudden Increased Bleeding Call your doctor if you observe: Fever of 101 or Higher, Uncontrolled pain Suture Line Care: Avoid Pulling/Pushing, Avoid Pinching/Bending Instructions: Transurethral Resection of the Prostate (TURP): Home Recovery Allergies/Adverse Reactions: Allergies No Known Allergies Allergy (Verified 03/14/17 21:20) Medications to take at Discharge Cephalexin [Keflex] 500 mg PO BID #10 cap 03/14/17 Lisinopril [Prinivil] 10 mg PO DAILY 03/14/17 Tamsulosin HCl [Flomax] 0.4 mg PO DAILY 03/14/17 Ciprofloxacin [Cipro] 500 mg PO BID #14 tab 03/18/17 The following prescriptions were given: Ciprofloxacin [Cipro] 500 mg PO BID #14 tab Primary Care Physician: Paul Tabares III, MD [Primary Care Provider] - Please Follow Up With: Diomedes Gomes MD When: please call to make an appointment. 03/18/17 1433 <Electronically signed by Diomedes Gomes MD> Date Diomedes Gomes MD CC: Paul Tabares III, MD CBC-COMPLETE BLOOD CNT Collected: 03/17/2017 Status: F Source: [place] NO DIFF 6:09 AM [facility] REPOSITORY TYPE CODE TESTS RESULT OUT OF RANGE REFERENCE UNITS LAB L100.1000 4.4-11.0 K/mm3 Normal WBC 8.6 LAB L100.1200 4.6-6.2 M/mm3 Low RBC 2.58 LAB L100.1300 13.0-16.5 g/dl Low HGB 8.7 LAB L100.1400 40-54 % Low HCT 26.1 LAB L100.1500 80-94 fL High MCV 101.2 LAB L100.1600 27.0-32.0 pg High MCH 33.7 LAB L100.1700 32-36 g/gl Normal MCHC 33.3 LAB L100.1810 11.6-14.6 % Normal RDW CV 12.3 LAB L100.1820 35.1-43.9 fl Normal RDW SD 43.4 LAB L100.1900 150-450 K/mm3 Low PLT 125 LAB L100.2000 6.2-12.0 fl Normal MPV 10.8 Performed By: #### L100.0500 #### [facility] [address] [place], [address] BASIC METABOLIC Collected: 03/17/2017 Status: F Source: [place] PROFILE (BMP) 6:09 AM [facility] REPOSITORY TYPE CODE TESTS RESULT OUT OF RANGE REFERENCE UNITS LAB L501.0100 74-106 mg/dL Normal GLU 100 Result Comment: Fasting Glucose result from 100 to 125 mg/dL suggests IMPAIRED HOMEOSTASIS per A.D.A. criteria. Please note revised GLUCOSE reference range effective 2017. LAB L501.1000 7-18 mg/dL Normal BUN 18 LAB L501.1100 0.70-1.30 mg/dL Normal CREAT,SERUM 1.13 Result Comment: The validity of the calculated GFR AND GFRAA in patients over 70 years has not been determined. Clinical correlation is essential. LAB L501.1110 >60 mL/min Normal EST GFR 67 Result Comment: Non- GFR Calc LAB L501.1115 >60 mL/min Normal EST GFR - AA 82 Result Comment: GFR Calc LAB L501.1255 ml/min Normal Estimated CRCL 55.49 LAB L501.1300 10-20 RATIO Normal BUN/CRE 15.9 LAB L501.2200 8.5-10 mg/dL Low .1 CA 7.4 LAB L501.5300 136-14 mmol/L Normal 5 NA 141 LAB L501.5600 3.5-5. mmol/L Normal 1 K 3.6 LAB L501.5900 98-107 mmol/L High CL 109 LAB L501.6100 21.0-3 mmol/L Normal 2.0 CO2 24.0 LAB L501.6200 5-15 Normal GAP 8 Performed By: #### L500.2500 #### [facility] [address] [place], [address] OPERATIVE REPORT Observed: 03/16/2017 Status: F Source: [place] 9:02 AM [facility] REPOSITORY [facility] Medical Records Department [address] [place] [address] Operative Report 03/16/17 0858 MR#: [id number] Acct: [id number] Name: KYAW CALHOUN Rep #: [id number] : 1940 76 From: Diomedes Gomes MD PCP: Paul Tabares III, MD Status: ADM PIPER Y Location: [place] [address] Problem List (1) Urinary retention due to benign prostatic hyperplasia Status: Acute Comment: Urinary retention from BPH and bilateral hydronephrosis Report of Operation Date of Procedure: 03/16/17 Pre-Operative Diagnosis: BPH, urinary retention and bilateral hydronephrosis Post-Operative Diagnosis: Same Surgery/Procedure Performed:: Transurethral resection of the prostate Description of Surgical Findings:: 76-year-old male taken back to the operating room at the smooth induction of general anesthesia he is placed in dorsal lithotomy position the current 24 [place] catheter was removed from the bladder this is placed in the emergency room by the ER staff. I then prepped and draped the patient usual sterile fashion went into the bladder with a 26 [place] continuous flow resectoscope along the length of the ureter there is a small tear in the bulbar urethra posteriorly from the placement of Caldera catheter this is a little bit of bleeding otherwise just a small tear should help heal on its own I then went up the prostate had a very large obstructive prostate very large lateral lobes growing into the prostate no significant median lobe I then resected the median lobe and resected at the 6:00 back to the verumontanum I then resected the right lobe of the prostate all the way back to the verumontanum I then resected the left lobe of the prostate out all the way back to the verumontanum, I then very carefully resected the apical tissue at the verumontanum making sure I did not injure the sphincter we elect out all the chips out of the bladder bladder was heavily trabeculated left and right ureteral orifice were uninvolved and uninjured and surgery and were identified. Once all the prostate chips were removed there was a handed off as a specimen I did then use the button to smooth out the resection and obtained good hemostasis. I pulled back beyond the sphincter and the sphincter coapted together was nice intact look like the sphincter was working properly looked inside from the bladder into the bladder had a wide open channel. We did a Valsalva test at the end had a nice wide open stream. Patient anesthetic was reversed place a 22 [place] Caldera catheter into the bladder and put on continuous bladder irrigation with a 30 cc balloon of water. Type of Anesthesia:: General Drains: 22fr 3 way - Admit VTE Documentation VTE Present on Admission: No VTE Mechan Device Prophylaxis: SCD's VTE Pharm Prophylaxis ordered?: No Reason prophylaxis not ordered:: Treatment Not Indicated 03/16/17901 <Electronically signed by Diomedes Gomes MD> Date Diomedes Gomes MD CC: Paul Tabares III, MD; Diomedes Gomes MD Signed PROSTATE, TUR Observed: 03/16/2017 Status: F Source: [place] 7:30 AM [facility] REPOSITORY Patient: KYAW CALHOUN : 1940 (76/M) Acct Num: [id number] Phys: Gabriela PALENCIA,Diomedes Venegas Unit Num: [id number] Loc: MS3 [id number] Specimen: [id number] Received: 03/16/17 - 1011 Spec Type: TURP TISSUES TISSUES: Prostate, NOS GROSS DESCRIPTION Received is one container labeled with the patient's name and designated prostate tissue. The specimen consists of multiple irregular fragments of pink-garcia, rubbery, soft tissue that in aggregate weigh 34.1 gm and measure in aggregate 8 x 8 x 1.2 cm. Strategic Analyst portions are submitted in 12 cassettes. / AM:gallito 03/16/17 TC:2 CPT: 98880 HEADER OPERATION: Cysto, TUR, prostate, Olympus PRE-OP DIAGNOSIS: Urinary retention; benign prostatic hypertrophy TISSUE SUBMITTED: Prostate tissue MICROSCOPIC DESCRIPTION Slides are reviewed. MICROSCOPIC DIAGNOSIS Prostate, transurethral resection: Benign nodular hyperplasia, glandular and stromal types. Chronic inflammation with focal acute inflammation. Strips of benign urothelium with mild chronic inflammation. AM:gallito 03/19/17 Signed Abdulaziz Ortiz 03/19/17 <signature on file> Performed By: #### PPROS #### [facility] [address] [place], [address] PROGRESS Observed: 03/15/2017 Status: COMPLETED Source: [place] 6:41 PM [facility] REPOSITORY HNO ID: [id number] Author: Paul Tabares III Service: (none) Author Type: Physician Type: Progress Notes Filed: 03/15/2017 6:41 PM Note Text: Kyaw, There is evidence of acute kidney injury caused by enlargement of the prostate and subsequent bladder outlet obstruction. I believe this is the cause for your fatigue. The kidney function should improve after the obstruction is relieved. The PSA is elevated to the level it was 3 years ago. There is also a mild anemia which I believe is related to the kidney function. The lipids and other labs are fine. Paul Tabares III, MD, FAAFP HISTORY AND PHYSICAL Observed: 03/15/2017 Status: F Source: [place] EXAM 7:57 AM [facility] REPOSITORY [facility] Medical Records Department [address] [facility] [place] [address] History and Physical 03/15/17 0754 MR#: [id number] Acct: [id number] Name: KYAW CALHOUN Rep #: [id number] : 1940 76 From: Diomedes Gomes MD PCP: Paul Tabares III, MD Status: ADM PIPER Y Location: [place] [id number] Problem List (1) Urinary retention due to benign prostatic hyperplasia Status: Acute Comment: had been having problems urinating and night time wetting. presented to ER in retention. History of Present Illness Date of Admission: 03/15/17 Chief Complaint: bph urinary retention. The patient is a 76 year old male with onset of urinary retention had been having leakage at night and incontinence, found to have retention and bleeding will do ct scan add on for TURP tomorrow. Past Medical History Allergies No Known Allergies Allergy (Verified 03/14/17 21:20) Home Medications: Ambulatory Orders Medication Instructions Recorded Cephalexin [Keflex] 500 mg PO BID #10 cap 03/14/17 Lisinopril [Prinivil] 10 mg PO DAILY 03/14/17 Tamsulosin HCl [Flomax] 0.4 mg PO DAILY 03/14/17 Surgical History: no surgical history Psychiatric History: No pertinent psych hx Lives: Alone Smoking Status: Never smoker Tobacco Use: Non-smoker Alcohol: None Drugs: None Review of Systems Constitutional: Denies: Chills, Fever, Weight Change HEENT: Denies: Head Aches, Sinus Congestion, Sinus Drainage Cardiovascular: Denies: Chest Pain, Palpitations Respiratory: Denies: Cough, Shortness of breath at rest, Sputum production Gastrointestinal: Denies: Abdominal Pain, Nausea, Vomiting Genitourinary: Denies: Dysuria Musculoskeletal: Denies: Joint Pain, Joint Tenderness Skin: Denies: Rash, Wounds Neurological: Denies: Numbness, Tingling, Focal weakness Psychiatric: Denies: Anxiety, Depression, Homicidal Ideations, Suicidal Ideations Hematologic/ Lymphatic: Denies: Easy Bruising, Easy Bleeding VTE Information - Inpt Only VTE Present on Admission: No VTE Mechan Device Prophylaxis: SCD's Patient Problems: Active and Suspected Problems Urinary retention due to benign prostatic hyperplasia (Acute) had been having problems urinating and night time wetting. presented to ER in retention. - Physical Exam General: Alert, Oriented x3, Cooperative HEENT: Atraumatic, PERRLA, EOMI, Normocephalic Neck: Supple, No JVD, Negative Carotid Bruits Lungs: Clear to auscultation, Normal air movement Cardiovascular: Regular rate, No murmurs Abdomen: Bowel Sounds Present, Soft, Non Tender Extremities: No edema, Capillary Refill Less than 3 Seconds Skin: No rashes, No breakdown Musculoskeletal: No Tenderness to Palpation of Joints or Extremities Neurological: Cranial nerves II-XII grossly intact Psych/Mental Status: Normal Affect, Appropriate Comment: prostate, enlarged 65gm,smooth Vital Signs Temp Pulse Resp BP Pulse Ox 98.5 F 81 16 145/80 H 98 03/15/17 07:45 03/15/17 07:45 03/15/17 07:45 03/15/17 07:45 03/15/17 07:45 Oxygen Delivery Method Room Air Weight: 80.377 kg Body Mass Index (BMI) 26.9 Intake and Output for Last 24 Hours Output Total 900 / 900 Balance -900 / -900 Assessment/Plan Active and Suspected Problems Urinary retention due to benign prostatic hyperplasia (Acute) had been having problems urinating and night time wetting. presented to ER in retention. 76 yo male with urinary retention admitted for bleeding will do ct scan, plan for a TURP in the morning. npo at midnight. 03/15/17 0757 <Electronically signed by Diomedes Gomes MD> Date Diomedes Gomes MD Cosigner Signature: Date (if applicable) CC: Paul Tabares III, MD; Diomedes Gomes MD Signed ABDOMEN/PELVIS WITHOUT Observed: 03/15/2017 Status: F Source: [place] CONT 7:57 AM [facility] REPOSITORY [facility] Imaging Services [address] [place] [address] Abdomen/Pelvis without Cont MR#: [id number] Acct: [id number] Name: KYAW CALHOUN Rep #: [id number] : 1940 M 76 From: Vaibhav Llamas MD PCP: Paul Tabares III, MD Status: ADM [facility]ER Study: Abdomen/Pelvis without Cont Date of Exam: 03/15/17 Exam# [id number] Ordering Dr: Diomedes Gomes MD STUDY: CT ABDOMEN AND PELVIS WITHOUT CONTRAST REASON FOR EXAM: Male, 76 years old. Urinary retention. History of BPH. RADIATION DOSAGE (If Supplied By Facility): CTDIvol = ( 7.81 ) mGy, DLP = ( 374.40 ) mGycm TECHNIQUE: Transaxial images were obtained from the dome of the diaphragm to the symphysis pubis without oral contrast, and without intravenous contrast. Sagittal and coronal images were reconstructed. Individualized dose optimization techniques were used for this CT. COMPARISON: None. FINDINGS: Minimal degree of increased markings at the lung bases suggestive of linear scarring and/or atelectasis. Small left pleural effusion. Coronary artery calcifications. Normal liver. I suspect small gallstones along the dependent portion of the gallbladder lumen. Normal spleen. Normal pancreas. Normal bilateral adrenal glands. Moderate to severe degree of right-sided hydronephrosis and there is moderate hydroureter down to the insertion into the bladder. Moderate left hydronephrosis and left hydroureter. There is a small hiatal hernia. Normal small intestine. There are multiple colonic diverticula consistent with diverticulosis. The appendix is visualized and appears normal. There is diffuse atherosclerotic calcification of the abdominal aorta, without a demonstrated aneurysm. Normal inferior vena cava. Normal retroperitoneum. There is diffuse circumferential wall thickening of the urinary bladder. A Caldera catheter is seen within the bladder. The bladder is empty at the time of the examination. There is enlargement of the prostate gland. It measures 5.1 cm x 5.3 cm. This causes indentation at the bladder base. There is a small umbilical hernia containing fat. Disc space narrowing with subchondral sclerosis at the L4-L5 level. CT/Abdomen/Pelvis without Cont IMPRESSION: Bilateral hydronephrosis and hydroureter worse on the right side. Diffusely thickened wall of the urinary bladder. Prostatic hypertrophy. Small left pleural effusion with linear atelectasis and/or scarring at the lung bases. Electronically Signed: Vaibhav Llamas MD at 9:02 EST Tel [phone], Service support , CC: Paul Tabares III, MD; Diomedes Gomes MD Barrel Repairer: Signed BASIC METABOLIC Collected: 03/15/2017 Status: F Source: [place] PROFILE (BMP) 2:05 AM [facility] REPOSITORY TYPE CODE TESTS RESULT OUT OF RANGE REFERENCE UNITS LAB L501.0100 74-106 mg/dL Normal GLU 100 LAB L501.1000 7-18 mg/dL High BUN 25 LAB L501.1100 0.70-1.30 mg/dL High 1.50 CREAT,SERUM Result Comment: The validity of the calculated GFR AND GFRAA in patients over 70 years has not been determined. Clinical correlation is essential. LAB L501.1110 >60 mL/min Low EST GFR 49 Result Comment: Non- GFR Calc LAB L501.1115 >60 mL/min Low EST GFR - AA 59 Result Comment: GFR Calc LAB L501.1255 ml/min Normal Estimated CRCL 41.80 LAB L501.1300 10-20 RATIO Normal BUN/CRE 16.7 LAB L501.2200 8.5-10 mg/dL Normal .1 CA 8.6 LAB L501.5300 136-14 mmol/L Normal 5 NA 141 LAB L501.5600 3.5-5. mmol/L Normal 1 K 3.7 LAB L501.5900 98-107 mmol/L Normal CL 106 LAB L501.6100 21.0-3 mmol/L Normal 2.0 CO2 23.0 LAB L501.6200 5-15 Normal GAP 12 Performed By: #### L500.2500 #### [facility] [address] [place], [address] EMERGENCY DEPARTMENT Observed: 03/15/2017 Status: F Source: [place] SUMMARY 12:58 AM [facility] REPOSITORY [facility] Medical Records Department [address] [place] [address] Emergency Department Summary 03/15/17 0055 MR#: [id number] Acct: [id number] Name: KYAW CALHOUN Rep #: [id number] : 1940 76 From: Radhames Norris MD PCP: Paul Tabares III, MD Status: REG ER - ER Visit Summary Date of Service: 03/15/17 Chief Complaint: Hematuria History of Present Illness: The patient is a 76 M has had a history of prostatic enlargement, recently diagnosed with a UTI and having trouble emptying his bladder so he was seen earlier today here in the ER after being sent by his doctor for catheterization, he was diagnosed with urinary retention and sent home with catheter to follow-up with urology. About half an hour after being catheterized leaving, he developed hematuria which developed in the clots, he then had some leaking around the catheter and intermittent discomfort in his suprapubic area. No back pain, nausea, vomiting, fevers. He started the antibiotic. Has never had hematuria before. Physical Examination: Well-appearing in no distress, vitals are unremarkable. He has minimal suprapubic discomfort with palpation, the rest of his abdomen is benign. No CVA tenderness. There is gross blood with clots present in the Caldera catheter, which is draining. Test Results: CBC is unremarkable. Emergency Department Course and Treatment: The bladder was irrigated and cleared. However, bleeding later recurred with clots. I recommend admission. Discussed with Dr. Gomes. Will admit to floor with continuous bladder irrigation, will place a new triple-lumen larger [place] Caldera catheter here in the ER. Treatment Plan: Admit MedSurg for continuous bladder irrigation and urology evaluation in the morning Disposition: Admit Impression: Hematuria Urinary tract infection Urinary retention This note was generated with Muse dictation software. It may contain incorrect words, spelling, and punctuation that were not noted in review of the chart prior to signing ED Disposition - Plan for ED Patient: Disposition: Acute Care Hospital [facility] Chief Complaint: Complaint Referrals: Paul Tabares III, MD [Primary Care Provider] - What to do if you have Problems For any increased pain, shortness of breath, bleeding, nausea or vomiting, chest pain, or any unexpected problems, contact your Primary Care Provider. Call [facility] ([phone]) or report to the closest Emergency Room. Call 911 if necessary. 03/15/17 0058 <Electronically signed by Radhames Norris MD> Date Radhames Norris MD Cosigner Signature (If Indicated): Date CC: Paul Tabares III, MD CBC-COMPLETE BLOOD CNT Collected: 03/14/2017 Status: F Source: [place] NO DIFF 10:41 PM [facility] REPOSITORY TYPE CODE TESTS RESULT OUT OF RANGE REFERENCE UNITS LAB L100.1000 4.4-11.0 K/mm3 Normal WBC 7.6 LAB L100.1200 4.6-6.2 M/mm3 Low RBC 3.71 LAB L100.1300 13.0-16.5 g/dl Low HGB 12.5 LAB L100.1400 40-54 % Low HCT 36.9 LAB L100.1500 80-94 fL High MCV 99.5 LAB L100.1600 27.0-32.0 pg High MCH 33.7 LAB L100.1700 32-36 g/gl Normal MCHC 33.9 LAB L100.1810 11.6-14.6 % Normal RDW CV 12.5 LAB L100.1820 35.1-43.9 fl High RDW SD 44.4 LAB L100.1900 150-450 K/mm3 Normal PLT 183 LAB L100.2000 6.2-12.0 fl Normal MPV 10.7 Performed By: #### L100.0500 #### [facility] [address] [place], [address] DISCHARGE INSTRUCTION Observed: 03/14/2017 Status: F Source: [place] 4:13 PM [facility] REPOSITORY [facility] Medical Records Department [address] [place] [place] [address] Discharge Instruction 03/14/17 1612 MR#: [id number] Acct: [id number] Name: KYAW CALHOUN Rep #: [id number] : 1940 76 From: Kunal Harper MD PCP: Paul Tabares III, MD Status: REG ER ED Disposition - Plan for ED Patient: Disposition: Home or Assisted Living Chief Complaint: Complaint Instructions: ED UTI Cystitis Male Prescriptions: Cephalexin [Keflex] 500 mg PO BID #10 cap Referrals: Paul Tabares III, MD [Primary Care Provider] - What to do if you have Problems For any increased pain, shortness of breath, bleeding, nausea or vomiting, chest pain, or any unexpected problems, contact your Primary Care Provider. Call [facility] ([phone]) or report to the closest Emergency Room. Call 911 if necessary. 03/14/17 1613 <Electronically signed by Kunal Harper MD> Date Kunal Harper MD Cosigner Signature (If Indicated): Date CC: Paul Tabares III, MD EMERGENCY DEPARTMENT Observed: 03/14/2017 Status: F Source: [place] SUMMARY 4:12 PM [facility] REPOSITORY [facility] Medical Records Department [address] [place] [address] Emergency Department Summary 03/14/17 1609 MR#: [id number] Acct: [id number] Name: KYAW CALHOUN Rep #: [id number] : 1940 76 From: Kunal Harper MD PCP: Paul Tabares III, MD Status: REG ER - ER Visit Summary Date of Service: 03/14/17 Chief Complaint: Urinary retention, hypertension History of Present Illness: The patient is a 76 M who has high blood pressure and some urinary retention. He saw his PCP today. He is having some suprapubic pain with this. He feels like he is not emptying out his bladder. He has a history of BPH in the past. He does not take Flomax currently. He denies dysuria or hematuria. No fevers. Physical Examination: Vital signs reviewed. HEENT exam unremarkable. Heart is regular rate and rhythm without murmurs. Lungs are clear to auscultation. Abdomen is soft with suprapubic tenderness. Extremities reveal no edema. Skin exam normal. Neurologic exam normal. Test Results: Urinalysis reveals 10-25 white blood cells Emergency Department Course and Treatment: A Caldera catheter was placed to be at 1.5 L of urine out. His blood pressure is 177/81. This is improved from 214/110 in the office. His PCP put him on a blood pressure medication and Flomax for home. I will add an antibiotic and he will go home with a Caldera catheter. He can follow up with his PCP or with Dr. Gomes Treatment Plan: [] Disposition: Discharge Impression: UTI, urinary retention, hypertension This note was generated with Monkeyseeation software. It may contain incorrect words, spelling, and punctuation that were not noted in review of the chart prior to signing ED Disposition - Plan for ED Patient: Chief Complaint: Complaint Referrals: Paul Tabares III, MD [Primary Care Provider] - What to do if you have Problems For any increased pain, shortness of breath, bleeding, nausea or vomiting, chest pain, or any unexpected problems, contact your Primary Care Provider. Call [facility] ([phone]) or report to the closest Emergency Room. Call 911 if necessary. 03/14/17 1612 <Electronically signed by Kunal Harper MD> Date Kunal Harper MD Cosigner Signature (If Indicated): Date CC: Paul Tabares III, MD URINALYSIS, COMPLETE Collected: 03/14/2017 Status: F Source: [place] 3:27 PM [facility] REPOSITORY Order Comment: How was Urine Obtained? STAVE INSPECTOR TO SPECIFY TYPE CODE TESTS RESULT OUT OF RANGE REFERENCE UNITS LAB L400.3000 Yellow COLOR Normal Yellow LAB L400.3050 Clear Normal CLARITY Sl. Cloudy LAB L400.3200 Normal mg/dl Normal GLUCOSE, UR Normal LAB L400.3300 Negative mg/dL Normal BILIRUBIN URINE Negative LAB L400.3400 Negative mg/dl Normal KETONE UR Negative LAB L400.3465 1.002-1.030 Normal SP.GR. DIPSTX 1.010 LAB L400.3550 5.0 - 8.0 pH UR Normal 6.0 LAB L400.3600 Negative mg/dl High PROT 15 DIPSTX LAB L400.3700 Normal mg/dl Normal UROBILI Normal LAB L400.3750 Negative Normal NITRITE UR Negative LAB L400.3780 Negative /ul High OCCULT BLOOD-UR 250 LAB L400.3800 Negative /ul LEUK Normal ESTERASE Negative LAB L400.4050 0-5 /hpf WBC Normal 10-25 SEEN LAB L400.4100 0-5 /hpf 0 Normal RBC-UA SEEN LAB L400.4150 0-5 /hpf SQUAM Normal EPI 0-5 SEEN LAB L400.4300 None Seen /hpf 0 Normal BACTERIA SEEN LAB L400.4350 <or=2+ /hpf 0 Normal MUCUS, URINE SEEN LAB L400.4900 1+ Normal AMORPHOUS URATE Performed By: #### L400.0001 #### [facility] [address] [place], [address] CBC Collected: 03/14/2017 Status: F Source: [place] 11:43 AM [facility] REPOSITORY TYPE CODE TESTS RESULT OUT OF REFERENCE UNITS RANGE LAB WBC 3.70-11.00 k/uL WBC 5.79 LAB RBC 4.20-6.00 m/uL Low RBC 3.88 LAB HGB 13.0-17.0 g/dL Low Hemoglobin 12.8 LAB HCT 39.0-51.0 % Hematocrit 39.5 LAB MCV 80.0-100.0 fL MCV High 101.8 LAB MCH 26.0-34.0 pG MCH 33.0 LAB MCHC 30.5-36.0 g/dL MCHC 32.4 LAB RDWCV 11.5-15.0 % RDW-CV 12.6 LAB PLTCT 150-400 k/uL Platelet Count 197 LAB MPV 9.0-12.7 fL MPV 11.7 LAB ABSNUC <0.01 k/uL Absolute nRBC <0.01 Performed By: #### CBC, CMP, LIPB, PSATF #### [facility] [address] [place], [place] [address] COMP METABOLIC PANEL Collected: 03/14/2017 Status: F Source: [place] 11:43 AM [facility] REPOSITORY TYPE CODE TESTS RESULT OUT OF REFERENCE UNITS RANGE LAB TP 6.3-8.0 g/dL Protein, Total 7.7 LAB ALB 3.9-4.9 g/dL Albumin 4.4 LAB CA 8.5-10.2 mg/dL Calcium, Total 9.5 LAB TBIL 0.2-1.3 mg/dL Bilirubin, Total 0.6 LAB ALKP 36-108 U/L Alkaline Phosphatase 98 LAB AST 14-40 U/L AST 32 LAB GLU 74-99 mg/dL Glucose 97 Result Comment: The [place] Diabetes Association (ADA) provides guidance for cutoff values for fasting glucose and random glucose. The ADA defines fasting as no caloric intake for at least 8 hours. Fas ting plasma glucose results between 100 to 125 mg/dL indicate increased risk for diabetes (prediabetes). Fasting plasma glucose results greater than or equal to 126 mg/dL meet the criteria for diagnosis of diabetes. In the absence of unequivocal hyperglycemia, results should be confirmed by repeat testing. In a patient with classic symptoms of hyperglycemia or hyperglycemic crisis, random plasma glucose results greater than or equal to 200 mg/dL meet the criteria for diagnosis of diabetes. Reference: Standards of Medical Care in Diabetes 2016, [place] Diabetes Association. Diabetes Care. 2016.39(Suppl 1). LAB BUN 9-24 mg/dL BUN High 31 LAB CRET 0.73-1.22 mg/dL Creatinine High 2.04 LAB NA 136-144 mmol/L Sodium 142 LAB K 3.7-5.1 mmol/L Potassium 4.5 LAB CL 97-105 mmol/L Chloride 104 LAB CO2 22-30 mmol/L CO2 26 LAB AGAP 9-18 mmol/L Anion Gap 12 LAB ALT 10-54 U/L ALT 38 LAB GFRAA eGFR- Amer. 39 LAB GFRNAA . eGFR-All Other Races 32 Result Comment: eGFR (Estimated GFR) Units of measure: mL/min/1.73 meters squared eGFR is derived from the reexpressed MDRD Study equation using the following parameters: serum creatinine, age, gender and race. The creatinine assay has been calibrated to be traceable to IDMS. An eGFR <60 mL/min/1.73m2 for >3 months is consistent with chronic kidney disease. Refer to KDOQI guidelines for clinical interpretation. In patients with unstable renal function, e.g. those with acute kidney injury, the eGFR may not accurately reflect actual GFR. Performed By: #### CBC, CMP, LIPB, PSATF #### [facility] [address] [place], [place] [address] LIPID PANEL, BASIC Collected: 03/14/2017 Status: F Source: [place] 11:43 AM [facility] REPOSITORY TYPE CODE TESTS RESULT OUT OF REFERENCE UNITS RANGE LAB CHOL <200 mg/dL Cholesterol 141 Result Comment: <200 mg/dL, Desirable 200-239 mg/dL, Borderline high >239 mg/dL, High LAB TRIGLY <150 mg/dL Triglyceride 58 Result Comment: <150 mg/dL, Normal 150-199 mg/dL, Borderline high 200-499 mg/dL, High >499 mg/dL, Very high LAB HDL >39 mg/dL HDL-Cholesterol 70 Result Comment: 40-59 mg/dL, Acceptable >59 mg/dL, High: Negative risk factor for coronary heart disease <40 mg/dL, Low: Positive risk factor for coronary heart disease LAB LDL <100 mg/dL LDL-Cholesterol 59 Result Comment: <100 mg/dL, Optimal 100-129 mg/dL, Near optimal/above optimal 130-159 mg/dL, Borderline high 160-189 mg/dL, High >189 mg/dL, Very high Secondary prevention optimal LDL Cholesterol levels are recommended to be < 70 mg/dL LAB NONHDL <130 mg/dL Non HDL Cholesterol 71 Result Comment: <130 mg/dL, Optimal 130-159 mg/dL, Near optimal/above optimal 160-189 mg/dL, Borderline high 190-219 mg/dL, High >219 mg/dL, Very high Secondary prevention optimal non HDL Cholesterol levels are recommended to be < 100 mg/dL LAB FT hrs Fasting Time 12 LAB VLDL <30 mg/dL VLDL Cholesterol 12 LAB TCHDL <5.10 TC:HDL Ratio 2.01 LAB LDLHDL <2.54 LDL:HDL Ratio 0.84 Result Comment: Reference: 1. National Cholesterol Education Program ATP III Guideline At-A-Glance Quick Desk Reference: National Heart, Lung, and Blood [place]. National Institutes of Health. 2001: NIH Publication No. 01-3305. 2. An International Atherosclerosis Society position paper: global recommendations for the management of dyslipidemia: executive summary, Atherosclerosis. 2014: 232(2):410-413. Performed By: #### CBC, CMP, LIPB, PSATF #### [facility] [employer] [address] [place], [place] [address] PSA, FREE Collected: 03/14/2017 Status: F Source: [place] 11:43 AM [facility] REPOSITORY TYPE CODE TESTS RESULT OUT OF REFERENCE UNITS RANGE LAB PSA 0.00-2.59 ng/mL PSA, High Diagnostic 9.83 Result Comment: Total PSA test methodology used is the Electrochemiluminescence Immunoassay. For an individual patient, the significance of a PSA level should be interpreted in a broad clinical context, including age, race, family history, digital rectal exam, prostate size, results of prior te sting (prostate biopsy, free PSA, PCA3), and use of 5-alpha reductase inhibitors. Considering the high incidence of asymptomatic cancer in the general population that may not pose an ultimate risk to a patient, the decision to recommend urological evaluation or prostate biopsy should be individualized after consideration of all these factors. REFERENCE: Helene Hussein M.D., M.P.H., Christopher Duran M.D., Ph.D., Endy Gaxiola M.D., Edna Paz, M.P.H., Hyun Jackson, Sc.Jovanna. Effect of Verification Bias on Screening for Prostate Cancer by Measurement of Prostatic Specific Antigen. N Engl J Med 2003,349:335-42. LAB PSAPER % PSA, Percent Free 30 DO NOT ORDER FOR SUPERIOR ONLY Result Comment: Less than 11% suggestive of prostate cancer. Greater than 23% suggestive of benign condition. Performed By: #### CBC, CMP, LIPB, PSATF #### [facility] [employer] [address] [place], [place] [address] PROGRESS Observed: 03/14/2017 Status: COMPLETED Source: [place] 10:34 AM [facility] REPOSITORY HNO ID: [id number] Author: Paul Tabares III Service: (none) Author Type: Physician Type: Progress Notes Filed: 03/14/2017 1:26 PM Note Text: SUBJECTIVE: This is a 76 year old male that is here today for 1. hypertension-new dx. quit racketball 6 mos. Mother had hypertension and from CVA 2. urinary incontinence only at night, never during the day, during past 2-3 wks. notes decreased strength of urine flow past 6 mos. Hx of BPH with elevated PSA under care of Dr Baker. I reviewed the urology note from 2014. PSA values as follows: 08/26/08 1.40 10/2012 4.30 05/14/13 9.57 free PSA 1.20 free PSA 15 % 05/21/13 8.03 07/2013 7.32 11/2013 7.39 08/2014 7.02 no chest pain or angina, but notes HARVEY and some sense of weakness recently. No past medical history on file. No current outpatient prescriptions on file prior to visit. No current facility-administered medications on file prior to visit. No family history on file. Social History Substance Use Topics - Smoking status: Never Smoker - Smokeless tobacco: Never Used - Alcohol use Yes Comment: occasionally Pulse 72 Temp 36.2 ?C (97.1 ?F) (Tympanic) Resp 20 Wt 85.3 kg (188 lb) BMI 29.01 kg/m2 BP 214/110 207/111. OBJECTIVE: APPEARANCE Well appearing, alert, in no acute distress, well-hydrated, well nourished. NECK Supple, no adenopathy; thyroid symmetric, normal size, no bruits HEART RRR with normal S1 and S2, no murmurs, no gallops, no JVD appreciated LUNG clear to auscultation ABDOMEN bowel sounds normoactive, no bruits, soft, non-tender, non-distended, without organomegaly or palpable masses, suprapubic mass with some tenderness RECTAL Anus normal, no anorectal masses, prostate 4/4 size, smooth, rubbery, non tender ASSESSMENT: severe hypertension BPH with bladder outlet obstruction and urine retention --probably causing severe hypertension PLAN: healthy diet and regular activity labs as ordered lisinopril 10mg daily--nurse bp check in 1 wk tamsulosin 0.4mg at bedtime refer to urology called patient to encourage him to go to ER for bladder catheterization to empty bladder and more quickly control BP--he agreed. Discussed case with ER physician AMANDO Ruvalcaba MD, III MD ALLERGIES ALLERGIES DATE TYPE / CODE NAME / CODE REACTION SEVERITY SOURCE 03/14/2017 Drug No Known Unknown [facility] Allergy/416 Allergies/I32678 Hospital 029676(SNOM 0388(RXNORM) Repository ED CT) Drug NO KNOWN [facility] Class/95457 ALLERGIES Main [place] 1003(SNOMED Repository CT) ENCOUNTERS ENCOUNTERS ADMIT/DISCHARGE ACCOUNT ADMITTING ENCOUNTER LOCATION SOURCE NUMBER CLASS 02/21/2018 [id number] Ambulatory [facility] ing:LAB Repository 07/03/2017 [id number] Ambulatory [facility] ing:LAB Repository 03/21/2017/03/21/19 [id number] Ambulatory [address] Repository 03/16/2017/03/18/19 [id number] Gabriela Diomedes Inpatient [address] ing:QG5Xybo: Repository [id number]: 1 03/16/2017/03/18/19 [id number] Ambulatory BMSBuilding:W [address] Repository 03/14/2017/03/14/19 [id number] Emergency [address] ing:ED Repository 03/14/2017 [id number] Ambulatory [facility] Repository 03/14/2017/03/15/19 [id number] Ambulatory [address] Repository PAYERS PAYERS ENCOUNTER GUARANTOR PAYER SUBSCRIBER SOURCE 02/21/2018 KYAW J Primary KYAW J [place] [id number] Insurance:MEDICARE HANSENDOB: [place], [place] PART A [facility] [id number] Hospital [address]Xbi: (330) Number: Repository [phone] HP) [id number] Date:2018-02-21 02/21/2018 Secondary CHELSEY A [place] Insurance:ANTHEMPolic HANSENDOB: Community y Number: [id number] Hospital [id number] Repository Date:[id number] [address]LE: 02/21/2018 Tertiary NOT GIVENUNK [place] Insurance:SELF PAY [facility] Number: Effective Repository Date:2018-02-21 07/03/2017 Kyaw J Primary Kyaw J [place] [id number] Sahil Insurance:MEDICARE HansenDOB: [place], [place] PART A [facility] [id number] [id number]: Number: Repository [phone]~330 [id number] (HP) Date:2017-07-03 07/03/2017 Secondary Chelsey A [place] Insurance:ANTHEMPolic HansenDOB: Community y Number: [id number] Hospital [id number] Repository Date:1808-73-83SN [address] [place] [address]NU: 07/03/2017 Tertiary NOT GIVENUNK [place] Insurance:SELF PAY [facility] Number: Effective Repository Date:2017-07-03 03/16/2017 Kyaw J Primary Kyaw J [place] [id number] Sahil Insurance:MEDICARE HansenDOB: [place] PART A [facility] [id number] [address]Tel: Number: Repository [phone]~330 [id number] (HP) Date:2017-03-14 03/16/2017 Secondary Chelsey A [place] Insurance:ANTHEMPolic HansenDOB: Community y Number: [id number] Hospital [id number] Repository Date:6348-70-75[address], [place] [address]PK: 03/16/2017 Tertiary NOT GIVENUNK [place] Insurance:SELF PAY [facility] Number: Effective Repository Date:2017-03-14 03/16/2017 Kyaw J Primary Kyaw J [place] [id number] [place] Insurance:MEDICARE HansenDOB: [place] PART A [facility] [id number] [place] [id number]: Number: Repository [phone]~330 [id number] (HP) Date:2017-03-14 03/16/2017 Secondary Chelsey A [place] Insurance:ANTHEMPolic HansenDOB: Community y Number: [id number] Hospital [id number] Repository Date:7075-22-71[address], [place] [address]RW: 03/16/2017 Tertiary NOT GIVENUNK [place] Insurance:SELF PAY [facility] Number: Effective Repository Date:2017-03-16 03/14/2017 Kyaw J Primary Kyaw J [place] [id number] [place] Insurance:MEDICARE HansenDOB: Community [facility] [place] PART A [facility] [id number] Hospital [address]Lea: Number: Repository [phone] [id number] (HP) Date:2017-03-14 03/14/2017 Secondary Chelsey A [place] Insurance:ANTHEMPolic HansenDOB: Community y Number: [id number] Hospital [id number] Repository Date:[id number] [address], [place] [address]OA: 03/14/2017 Tertiary NOT GIVENUNK [place] Insurance:SELF PAY [facility] Number: Effective Repository Date:2017-03-14
== END ==
PROVIDERS: Family Provider Family Medicine; PCP Family Medicine; Referring Provider Family Medicine; Visit Provider Family Medicine
DX: Z79.899 Other long term (current) drug therapy (principal)
CPT/HCPCS: 36415; 80048

== ENCOUNTER → 2019-07-07 13:34 | Outpatient (CLI) | payer MEDICARE, OTHER, SELFPAY ==
[2017-03-16 05:38] VITALS: BMI 26.9
[2019-07-07 16:05] LABS: Anion Gap 7 (5-15); BUN 24 mg/dL (7-18); BUN/Creat Ratio 27.9 RATIO (10-20); Chloride 109 mmol/L (98-107); Creatinine, Serum 0.86 mg/dL (0.70-1.30); EST Glomerular Filtration Rate 92 mL/min (>60); Est Glom Filt Rate - Afr Amer 111 mL/min (>60); Glucose 88 mg/dL (74-106); PSA,Total- Diagnostic 2.58 ng/mL (0.0-4.0); Potassium 3.9 mmol/L (3.5-5.1); Sodium Level 141 mmol/L (136-145)
== END ==
PROVIDERS: PCP Family Medicine; Visit Provider Urology
DX: N40.1 Benign prostatic hyperplasia with lower urinary tract symptoms (principal)
CPT/HCPCS: 36415; 80048; 84153

== ENCOUNTER 2020-04-05 10:13 | Outpatient (RCR) | payer MEDICARE, OTHER, SELFPAY ==
[2017-03-16 05:38] VITALS: BMI 26.9
== END 2020-04-05 23:59 ==
LOC: IMMUN 10:13
PROVIDERS: PCP Family Medicine; Visit Provider Family Medicine
DX: Z23 Encounter for immunization (principal)
CPT/HCPCS: 0011A; 0012A

== ENCOUNTER → 2020-07-13 13:31 | Outpatient (CLI) | payer MEDICARE, OTHER, SELFPAY ==
[2017-03-16 05:38] VITALS: BMI 26.9
[2020-07-13 14:08] LABS: PSA,Total - Annual Screen 3.84 ng/mL (0.00-4.00)
== END ==
PROVIDERS: PCP Family Medicine; Visit Provider Urology
DX: Z12.5 Encounter for screening for malignant neoplasm of prostate (principal)
CPT/HCPCS: 36415; 84153; G0103

== ENCOUNTER 2020-08-07 21:15 | Emergency (ER) | payer MEDICARE, OTHER, SELFPAY ==
[2017-03-16 05:38] VITALS: BMI 26.9
[2020-08-07 21:16] VITALS: BP 127/82; PULSE 69; RESP 16; TEMP 36.5; O2SAT 96; BMI 27.3
--- NOTE | 2020-08-07 21:45 | EKG12_ITS ---
Test Reason : SYNCOPE Blood Pressure : / mmHG Vent. Rate : 061 BPM Atrial Rate : 061 BPM P-R Int : 168 ms QRS Dur : 098 ms QT Int : 440 ms P-R-T Axes : 049 -39 019 degrees QTc Int : 442 ms Normal sinus rhythm Possible Left atrial enlargement Left axis deviation Incomplete right bundle branch block Abnormal ECG Confirmed by CEDRIC PALENCIA, HUNTER ([id number]), film editor JANY PARISH ([id number]) on 08/11/2020 1:11:46 PM Referred By: GIOVANNA Confirmed By:HUNTER STEELE MD
[2020-08-07 21:52] LABS: Absolute Lymphocyte Count 2.28 X10^3/uL (0.83-4.51); Absolute Neutrophil Count 7.4 X10^3/uL (2.0-7.7); Basophil# 0.07 X10^3/uL; Basophil% 0.6 % (0-1); Eosinophil# 0.32 X10^3/uL; Eosinophils% 2.9 % (0-5); Hematocrit 43.2 % (40-54); Hemoglobin 14.8 g/dL (13.0-16.5); Lymphocyte # 2.28 X10^3/ul (0.83-4.51); Lymphocyte % 20.5 % (19-41); Mean Corp Hgb Conc 34.3 g/dL (32-36); Mean Corpuscular Hgb 33.9 pg (27.0-32.0); Mean Corpuscular Volume 98.9 fL (80-94); Mean Platelet Vol. 10.7 fl (6.2-12.0); Monocyte# 1.08 X10^3/uL; Monocyte% 9.7 % (0-10); NRBC Flagged by Analyzer 0 % (0-5); Neutrophil # 7.35 X10^3/uL (2.7-7.7); Neutrophil % 66.1 % (47-70); Platelet Count 213 K/mm3 (150-450); RBC Distribution Width CV 12.5 % (11.6-14.6); RBC Distribution Width SD 45.4 fl (35.1-43.9); Red Blood Count 4.37 M/mm3 (4.6-6.2); White Blood Count 11.1 K/mm3 (4.4-11.0)
--- NOTE | 2020-08-07 21:56 | RAD_ITS ---
INDICATION: Syncope EXAMINATION/TECHNIQUE: X-RAY - XR Chest 1 View COMPARISON: None. FINDINGS: The lungs are clear. Very tortuous thoracic aorta. The heart is not enlarged. No pleural effusion or pneumothorax. No acute osseous abnormalities. RAD/Chest 1 View (Portable) IMPRESSION: No acute radiographic abnormalities. Electronically Signed: Elmer King MD at 22:20 EDT Tel , Service support ,
[2020-08-07 22:09] LABS: ALB/GLOB Ratio 1.3 RATIO (0.9-2.4); AST(SGOT) 18 U/L (15-37); Alanine Aminotransfer ALT/SGPT 21 U/L (16-61); Albumin, Serum 4.2 g/dL (3.2-5.0); Alkaline Phosphatase 93 U/L (45-117); Anion Gap 8 (5-15); BUN 29 mg/dL (7-18); BUN/Creat Ratio 25.2 RATIO (10-20); Calcium,Total 9.7 mg/dL (8.5-10.1); Chloride 110 mmol/L (98-107); Creatinine, Serum 1.15 mg/dL (0.70-1.30); EST Glomerular Filtration Rate 65 mL/min (>60); Est Glom Filt Rate - Afr Amer 79 mL/min (>60); Estimated Creatinine Clearance 50.29 ml/min; Globulin 3.3 g/dL (2.2-4.2); Glucose 104 mg/dL (74-106); Potassium 3.6 mmol/L (3.5-5.1); Protein, Total 7.5 g/dL (6.4-8.2); Sodium Level 142 mmol/L (136-145)
[2020-08-07 22:36] LABS: D-Dimer Quantitative (DVT/PE) 0.67 FEU/ug/m (0.27-0.49)
--- NOTE | 2020-08-07 22:54 | CT_ITS ---
STUDY: CTA CHEST REASON FOR EXAM: Male, 79 years old. Elevated d-dimer. RADIATION DOSAGE (If Supplied By Facility): CTDIvol = ( 11.74 ) mGy, DLP = ( 418.41 ) mGycm TECHNIQUE: The examination was performed with the intravenous administration of IV 100mL Isovue-370. Post-processing of the angiographic images was performed, with MIP reconstructed images. Individualized dose optimization techniques were used for this CT. COMPARISON: Chest radiograph same date. FINDINGS: Heart and great vessels: No pulmonary embolus. 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 The descending thoracic aorta is ectatic and tortuous. No aortic dissection or hemorrhage or evidence of acute thoracic aortic pathology. No evidence of right heart strain. Heart size within normal limits. Coronary artery atherosclerosis which is not well evaluated because of cardiac motion. Lungs, pleura: No pneumonia, edema, or acute abnormality in the lungs. No pleural effusion. No pneumothorax. Mediastinum: No adenopathy or mass or hematoma. Osseous:No fracture or acute osseous abnormality. Chest wall: No concerning findings. Upper abdomen: No acute findings. CT/CTA Chest W/WO Contrast IMPRESSION: No acute finding. No pulmonary embolus. 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 Electronically Signed: Cristopher Ch MD at 0:12 EDT Tel , Service support ,
[2020-08-07 22:59] VITALS: BP 117/73; BP 131/73; BP 135/82; PULSE 68; PULSE 70; PULSE 72
[2020-08-07 23:07] LABS: Red Blood Cells-Urine 0 SEEN /hpf (0-5); Squamous Epithelial Cells - UA 0 SEEN /hpf (0-5)
[2020-08-07 23:13] LABS: Color, Urine Yellow (Yellow); Glucose, Dipstick Normal (Normal); Ketone-Dipstick 5 mg/dl (Negative); Leukocyte Esterase-Dipstick 25 /ul (Negative); Nitrite-Dipstick Negative (Negative); Occult Blood-Urine 10 /ul (Negative); Protein-Dipstick 30 mg/dl (Negative); Specific Gravity, Urine 1.025 (1.002-1.030); Urine Bilirubin Dipstick Negative (Negative); Urine Clarity Sl. Cloudy (Clear); Urine Urobilinogen 1 mg/dl (Normal)
[2020-08-07 23:19] LABS: Bacteria RARE /hpf (None Seen); Mucous, Urine RARE /hpf (<or=2+); White Blood Cells 0-5 SEEN /hpf (0-5)
[2020-08-08 01:00] VITALS: BP 132/75; PULSE 76; RESP 14; O2SAT 100
--- NOTE | 2020-08-08 01:09 | EDS_ITS ---
HPI History of Present Illness Chief Complaint: Syncope Informant: patient Onset/Context/Timing Onset: Today Context: Sudden Onset Timing: Lasts (3 to 5 minutes) Quality: Nauseated Worsened by: Nothing Relieved by: Nothing Narrative Narrative: Patient presents with a syncopal episode that occurred tonight. Patient states he was in a hot tub and when he got out he felt nauseated and passed out. Daughter states that he was out for approximately 3 to 5 minutes. Patient states that he gets in the hot tub every night at the same time. Patient admits to drinking 3 beers tonight while he was in the hot tub. Daughter was able to catch the patient before he hit the ground. Patient denies any chest pain. Patient denies any palpitations. Patient denies any vomiting. Patient denies any headaches. [facility] Medical History Hypertension Home Medications lisinopril [Prinivil] 2.5 mg PO DAILY 03/14/17 [History Last Taken 03/15/17] Allergy/AdvReac Type Severity Reaction Status Date / Time No Known Allergies Allergy Verified 08/07/20 21:18 Social History Smoking Status: Never smoker ROS [facility] ED Constitutional Constitutional ED: Denies chills or fever(s) Eyes Eyes: Denies blurry vision or change in vision ENT ENT ED: Denies rhinorrhea or sore throat Cardiovascular Cardiovascular: Denies chest pain or palpitations Respiratory/Chest Respiratory/Chest: Denies cough or dyspnea Gastrointestinal Gastrointestinal: Reports nausea; Denies vomiting Genitourinary Genitourinary ED: Denies dysuria or hematuria Musculoskeletal Musculoskeletal: Denies back pain or neck pain Integumentary Denies abscess or rash Neurologic Neurologic: Reports weakness; Denies headache(s) Allergic/Immunologic Allergic/Immunologic ED: Denies mouth swelling or urticaria EXAM Physical Exam Const Vital Signs: 08/07/20 21:16 08/07/20 21:24 08/07/20 22:59 Temperature 97.7 F L Temperature Source Oral Pulse Rate 69 Pulse Rate [Lying] 68 Pulse Rate [Sitting] 70 Pulse Rate [Standing] 72 Respiratory Rate 16 Respiratory Effort Normal Non-Labored Respiratory Pattern Normal Blood Pressure 127/82 H Blood Pressure [Lying] 117/73 Blood Pressure [Sitting] 131/73 H Blood Pressure [Standing] 135/82 H Blood Pressure Mean 97 Blood Pressure Mean [Lying] 87 Blood Pressure Mean [Sitting] 92 Blood Pressure Mean [Standing] 99 Pulse Ox 96 Oxygen Delivery Method Room Air 08/08/20 01:00 Temperature Temperature Source Pulse Rate 76 Pulse Rate [Lying] Pulse Rate [Sitting] Pulse Rate [Standing] Respiratory Rate 14 Respiratory Effort Respiratory Pattern Blood Pressure 132/75 H Blood Pressure [Lying] Blood Pressure [Sitting] Blood Pressure [Standing] Blood Pressure Mean 94 Blood Pressure Mean [Lying] Blood Pressure Mean [Sitting] Blood Pressure Mean [Standing] Pulse Ox 100 Oxygen Delivery Method Room Air Positive well nourished and well developed General Appearance ED: well developed HEENT Reports moist mucous membranes Neck supple and no JVD Resp normal respiratory effort and clear to auscultation bilaterally Cardio regular rate, regular rhythm and no murmurs GI normal to inspection, nondistended, normoactive bowel sounds and non-tender Palpation: soft Extremity normal to inspection General Extremety ED: Negative for edema or tenderness General Extremity: Negative for edema Neuro oriented x3, CN's II-XII intact bilaterally and no sensory deficits noted Sensorium / Orientation: alert Motor Exam: strength 5/5 throughout Psych mental status grossly normal Skin no rashes or lesions noted MDM MDM MDM Narrative Medical decision making narrative: EKG was obtained. On my interpretation, it showed a normal sinus rhythm with a rate of 61. IL interval, QRS interval, and QTc intervals were all normal. There is left axis deviation. There is a right bundle branch block pattern. There are no acute ST or T wave changes. This was unchanged compared to previous EKG dated 03/16/2017. Orthostatic vital signs were obtained were within normal limits. Portable 1 view chest x-ray was obtained. On my interpretation, lung morris are clear. There is normal cardiac silhouette. Bony thorax is normal. There is no acute process noted. Radiologist also interpreted the x-ray and agrees. CBC was normal. Comprehensive metabolic profile was normal. D-dimer was slightly elevated at 0.67. Because of this, CTA of the chest was obtained. There is no pulmonary embolism or aortic dissection. 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 There is no leakage or bleeding. Patient states he feels better and wants to go home. Patient was advised of his findings. Patient was instructed to follow-up with his primary care physician in 3 to 5 days. Patient understands and is agreeable with the plan. All questions were answered. Lab Data Attestation: I reviewed the patient's lab results. Labs: Laboratory Results - last 24 hr 08/07/20 08/07/20 08/07/20 21:30 21:30 22:15 WBC 11.1 H RBC 4.37 L Hgb 14.8 Hct 43.2 MCV 98.9 H MCH 33.9 H MCHC 34.3 RDW Std Deviation 45.4 H RDW Coeff of [place] 12.5 Plt Count 213 MPV 10.7 Immature Gran % (Auto) 0.200 Neut % (Auto) 66.1 Lymph % (Auto) 20.5 [place] % (Auto) 9.7 Eos % (Auto) 2.9 Baso % (Auto) 0.6 Absolute Neuts (auto) 7.4 Absolute Lymphs (auto) 2.28 Nucleated RBC % 0 D-Dimer Quant (PE/DVT) 0.67 H* Sodium 142 Potassium 3.6 Chloride 110 H Carbon Dioxide 24.0 Anion Gap 8 BUN 29 H Creatinine 1.15 Estim Creat Clear Calc 50.29 Est GFR (MDRD) Af Amer 79 Est GFR (MDRD) Non-Af 65 BUN/Creatinine Ratio 25.2 H Glucose 104 Calcium 9.7 Total Bilirubin 0.70 AST 18 ALT 21 Alkaline Phosphatase 93 Troponin I High Sens 6.0 Total Protein 7.5 Albumin 4.2 Globulin 3.3 Albumin/Globulin Ratio 1.3 Urine Color Urine Clarity Urine pH Ur Specific [place] Urine Protein Urine Glucose (UA) Urine Ketones Urine Occult Blood Urine Nitrite Urine Bilirubin Urine Urobilinogen Ur Leukocyte Esterase Urine RBC Urine WBC Ur Squamous Epith Cells Urine Bacteria Urine Mucus 08/07/20 23:00 WBC RBC Hgb Hct MCV MCH MCHC RDW Std Deviation RDW Coeff of [place] Plt Count MPV Immature Gran % (Auto) Neut % (Auto) Lymph % (Auto) [place] % (Auto) Eos % (Auto) Baso % (Auto) Absolute Neuts (auto) Absolute Lymphs (auto) Nucleated RBC % D-Dimer Quant (PE/DVT) Sodium Potassium Chloride Carbon Dioxide Anion Gap BUN Creatinine Estim Creat Clear Calc Est GFR (MDRD) Af Amer Est GFR (MDRD) Non-Af BUN/Creatinine Ratio Glucose Calcium Total Bilirubin AST ALT Alkaline Phosphatase Troponin I High Sens Total Protein Albumin Globulin Albumin/Globulin Ratio Urine Color Yellow Urine Clarity Sl. Cloudy Urine pH 6.0 Ur Specific [place] 1.025 Urine Protein 30 H Urine Glucose (UA) Normal Urine Ketones 5 H Urine Occult Blood 10 H Urine Nitrite Negative Urine Bilirubin Negative Urine Urobilinogen 1 H Ur Leukocyte Esterase 25 H Urine RBC 0 SEEN Urine WBC 0-5 SEEN Ur Squamous Epith Cells 0 SEEN Urine Bacteria RARE Urine Mucus RARE Radiography Chest X-Ray - ED: 1 View, Read by ED Physician, Read by Radiologist and Normal Diagnostic Testing: Radiology Impression Chest X-Ray 08/07/20 21:56 IMPRESSION: No acute radiographic abnormalities. Electronically Signed: Elmer King MD at 22:20 EDT Tel , Service support , Chest CTA 08/07/20 22:54 IMPRESSION: No acute finding. No pulmonary embolus. 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 Electronically Signed: Cristopher Ch MD at 0:12 EDT Tel , Service support , Discharge Plan Triage Chief Complaint: Syncope ED Provider: Jese Hemphill Dx/Rx/DC Orders Clinical Impression: Syncope and collapse Instructions: ED Fainting, Uncertain Cause Prescriptions: No Action lisinopril [Prinivil] 10 MG tablet 2.5 mg PO DAILY RF: 0 Primary Care Provider: Rick Duckworth Referrals: Rick Duckworth MD [Primary Care Provider] - 3-5 Days Disposition Disposition: Home, Self Care Discharge Date/Time: 08/08/20 01:31
== END 2020-08-08 01:31 | disposition home or self-care (01) ==
PROVIDERS: Emergency Provider Emergency Medicine; PCP Family Medicine
DX: R55 Syncope and collapse (principal); I10 Essential (primary) hypertension; Z79.899 Other long term (current) drug therapy
CPT/HCPCS: 71045; 71275; 80053; 81001; 84484; 85025; 85379; 93005; 99285; Q9967; A4216

== ENCOUNTER → 2020-10-22 12:59 | Outpatient (CLI) | payer MEDICARE, OTHER, SELFPAY ==
--- NOTE | 2020-10-22 13:01 | ECHOD_ITS ---
Reason For Study: [place] Procedure This was a 2D Doppler, Color Flow transthoracic echocardiogram. The exam was of adequate technical quality. Exam performed in department. Left Ventricle Normal LV size. Left ventricular systolic function is normal. The estimated ejection fraction is 60 %. Diastolic function is indeterminate. No regional wall motion abnormalities noted. Right Ventricle Normal RV size. Normal systolic function. Atria Normal left atrium. Normal right atrium. No doppler evidence for ASD. Mitral Valve There is mild mitral annular calcification. Normal mitral valve. Trivial mitral valve insufficiency. Tricuspid Valve Normal tricuspid valve. Mild tricuspid valve insufficiency. Right ventricular systolic pressure estimated to be 29 mmHg. Aortic Valve Trisinus/trileaflet aortic valve. Mild diffuse aortic valve thickening. Pulmonic Valve The pulmonic valve is not well visualized. Trivial pulmonic valve insufficiency. Great Vessels Moderately dilated aortic root. Pericardium/Pleural No pericardial effusion. MMode/2D Measurements & Calculations LVIDd: 4.4 cm IVSd: 1.2 cm Ao root diam: 4.5 cm LVIDs: 2.5 cm LVPWd: 1.2 cm LA dimension: 3.9 cm FS: 43.1 % LAV(MOD-bp): 65.1 ml LA A4 area: 20.7 cm2 RA A4 area: 17.2 cm2 LAV(MOD-bp) Indexed: 33.9 ml/m2 LAV(MOD-sp2): 59.5 ml LAV(MOD-sp4): 55.2 ml Time Measurements MV dec time: 0.26 sec Doppler Measurements & Calculations MV E max jonel: 52.1 cm/sec Lat Peak E' Jonel: 4.8 cm/sec Med Peak E' Jonel: 5.4 cm/sec MV A max jonel: 91.7 cm/sec E/E' lat: 10.9 E/E' med: 9.7 MV E/A: 0.57 MV V2 max: 84.1 cm/sec MV P1/2t max jonel: 59.9 cm/sec Ao V2 max: 144.2 cm/sec MV max P.8 mmHg MV P1/2t: 107.8 msec Ao max P.3 mmHg MV V2 mean: 45.2 cm/sec MV dec slope: 162.6 cm/sec2 MV mean P.96 mmHg MVA(P1/2t): 2.0 cm2 MV V2 VTI: 19.8 cm AI max jonel: 455.5 cm/sec LV V1 max: 81.1 cm/sec PA V2 max: 98.2 cm/sec AI max P.0 mmHg LV V1 max P.6 mmHg AI dec slope: 183.2 cm/sec2 AI P1/2t: 728.3 msec TR max jonel: 256.6 cm/sec TR max P.3 mmHg ECHO/Echo Complete Interpretation Summary Left ventricular systolic function is normal. The estimated ejection fraction is 60 %. There is mild mitral annular calcification. Trivial mitral valve insufficiency. Mild tricuspid valve insufficiency. Mild diffuse aortic valve thickening. Trivial pulmonic valve insufficiency. Moderately dilated aortic root. Right ventricular systolic pressure estimated to be 29 mmHg. Diastolic function is indeterminate. Ordering Physician: West Ott Referring Physician: Rick Duckworth Performed By: Chris Guillermo RCS
== END ==
PROVIDERS: PCP Family Medicine; Referring Provider Internal Medicine Cardiovascular Disease; Visit Provider Internal Medicine Cardiovascular Disease
DX: I49.3 Ventricular premature depolarization (principal); R01.1 Cardiac murmur, unspecified; I10 Essential (primary) hypertension; I71.2 Thoracic aortic aneurysm, without rupture; R55 Syncope and collapse
CPT/HCPCS: 93225; 93226; 93306

== ENCOUNTER → 2020-12-01 06:30 | Outpatient (CLI) | payer MEDICARE, OTHER, SELFPAY ==
--- NOTE | 2020-12-01 06:32 | CDU_ITS ---
Reason For Study: dizziness Rt. Velocities/BP Lt. Velocities/BP Prox CCA 98.6/19.0 cm/sec. Prox CCA 96.9/25.7 cm/sec. Mid CCA 72.5/15.1 cm/sec. Mid CCA 79.7/22.0 cm/sec. Dist CCA 62.5/15.5 cm/sec. Dist CCA 76.0/17.1 cm/sec. Prox ICA 65.0/20.0 cm/sec. Prox ICA 72.0/22.8 cm/sec. Mid ICA 72.7/19.9 cm/sec. Mid ICA 71.9/24.1 cm/sec. Dist ICA 124.9/34.9 cm/sec. Dist ICA 62.1/24.1 cm/sec. Rt. ICA/CCA = 124.9/72.5=1.7. Lt. ICA/CCA = 71.9/79.7=0.9. Prox ECA 105.8/12.6 cm/sec. Prox ECA 107.6/20.4 cm/sec. Rt. Vert. 34.3/5.7 cm/sec. Lt. Vert. 41.5/15.0 cm/sec. Right Extracranial There is homogeneous, smooth atherosclerotic plaque noted in the right common carotid artery. There is homogeneous, smooth atherosclerotic plaque noted in the right internal carotid artery. The tortuous nature of the right internal carotid artery may result in flow velocities overestimating the degree of stenosis. There is homogeneous, smooth atherosclerotic plaque noted in the right external carotid artery. Antegrade flow is noted in the right vertebral artery. Left Extracranial There is homogeneous, smooth atherosclerotic plaque noted in the left common carotid artery. There is homogeneous, smooth atherosclerotic plaque noted in the left internal carotid artery. The tortuous nature of the left internal carotid artery may result in flow velocities overestimating the degree of stenosis. There is intimal thickening but no significant atherosclerotic plaque noted in the left external carotid artery. Antegrade flow is noted in the left vertebral artery. Procedure Carotid Duplex [id number]. This is a Carotid Duplex examination using B-mode, color flow and specral Doppler. Exam performed in department. VL/Carotid Duplex Ultrasound Interpretation Summary Minimal smooth plaque at the proximal right internal carotid artery with less t son 50% stenosis. Tortuosity noted in the distal right internal carotid artery with minimal veloc ity elevation at 124 cm/s flow likely secondary to tortuosity and likely not hemodynamically signifi cant. Less than 50% stenosis right external carotid artery Smooth plaque in the proximal left internal carotid artery with less than 50% s tenosis Less than 50% stenosis left external carotid artery Patent and antegrade vertebrals bilaterally Ordering Physician: Julio Cesar Garcia Referring Physician: West Ott; Rick Duckworth Performed By: Fatoumata Sparks, JAE, RVT
== END ==
PROVIDERS: PCP Family Medicine; Referring Provider Internal Medicine Cardiovascular Disease; Visit Provider Internal Medicine Cardiovascular Disease
DX: I49.3 Ventricular premature depolarization (principal); R94.31 Abnormal electrocardiogram [ECG] [EKG]; R42 Dizziness and giddiness
CPT/HCPCS: 78452; 93017; 93880; A9500; A4216; J2785